=== PATIENT | male | born 1965 | race Caucasian/White ===

== ENCOUNTER 2017-01-06 12:35 | Emergency (ER) | payer MEDICARE ==
[2017-01-06 12:52] VITALS: BP 148/66; PULSE 85; RESP 20; TEMP 97.8
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
== END 2017-01-06 14:21 | disposition home or self-care (01) ==
LOC: EC 12:35
DX: S09.92XA Unspecified injury of nose, initial encounter (principal); W50.1XXA Accidental kick by another person, initial encounter; G82.20 Paraplegia, unspecified; Z99.3 Dependence on wheelchair; E11.9 Type 2 diabetes mellitus without complications; Z79.4 Long term (current) use of insulin; Z88.0 Allergy status to penicillin; Z88.2 Allergy status to sulfonamides; Z88.7 Allergy status to serum and vaccine; G47.30 Sleep apnea, unspecified; Z99.89 Dependence on other enabling machines and devices
CPT/HCPCS: 70160; 99284

== ENCOUNTER 2017-05-04 12:25 | Emergency (ER) | payer MEDICARE ==
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
--- NOTE | 2017-05-04 13:47 | US ---
EXAMINATION TYPE: US VENOUS DOPPLER DUPLEX LE LT DATE OF EXAM: 05/04/2017 1:41 PM COMPARISON: NONE CLINICAL HISTORY: left leg Pain patient paraplegic from waist down.. SIDE PERFORMED: Left TECHNIQUE: The lower extremity deep venous system is examined utilizing real time linear array sonog iglesia with graded compression, doppler sonography and color-flow sonography. VESSELS IMAGED: External Iliac Vein (EIV) Common Femoral Vein Deep Femoral Vein Greater Saphenous Vein * Femoral Vein Popliteal Vein Small Saphenous Vein * Proximal Calf Veins (* superficial vessels) Left lower extremity: Negative for DVT IMPRESSION: Grayscale, color doppler, spectral doppler imaging performed of the deep veins of the left lower extr emity. There is normal flow, compressibility, vascular waveforms bilaterally. NEGATIVE FOR DVT, LEFT LOWER EXTREMITY.
--- NOTE | 2017-05-04 14:16 | XR ---
EXAMINATION TYPE: XR Hip Complete LT 2V DATE OF EXAM: 05/04/2017 COMPARISON: NONE HISTORY: Pain for 3 days TECHNIQUE: AP and frog-leg lateral FINDINGS: Negative for fracture or malalignment, mild left hip osteoarthritis changes appreciated. No focal bony or soft tissue findings. IMPRESSION: No acute process.
[2017-05-04 14:50] VITALS: BP 123/61; PULSE 82; RESP 18; TEMP 98.6
== END 2017-05-04 14:48 | disposition home or self-care (01) ==
LOC: EC 12:25
DX: M25.552 Pain in left hip (principal); M79.605 Pain in left leg; Z79.899 Other long term (current) drug therapy; Z88.0 Allergy status to penicillin; Z88.2 Allergy status to sulfonamides; Z88.7 Allergy status to serum and vaccine; Z98.890 Other specified postprocedural states
CPT/HCPCS: 73502; 99284

== ENCOUNTER 2017-07-12 19:16 | Inpatient (IN) | payer MEDICARE ==
[2017-07-12] MEDS ORDERED: IPRATROPIUM-ALBUTEROL 3 ML NEB INHALATION STA (20:24)
[2017-07-12] MEDS ORDERED: ACETAMINOPHEN TAB 500 MG TAB PO STA (20:24)
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
[2017-07-12 21:06] LABS: Basophils # (A) 0.1 k/uL (0-0.2); Basophils % (A) 1 %; CH 30.2; CHCM 35.5; Eosinophils # (A) 0.3 k/uL (0-0.7); Eosinophils % (A) 5 %; HCT 46.2 % (39.0-53.0); HDW 2.96; HGB 16.3 gm/dL (13.0-17.5); Luc # (Auto) 0.26; Luc % (Auto) 4; Lymphocytes # (A) 2.8 k/uL (1.0-4.8); Lymphocytes % (A) 40 %; MCH 30.2 pg (25.0-35.0); MCHC 35.3 g/dL (31.0-37.0); MCV 85.5 fL (80.0-100.0); Monocytes # (A) 0.4 k/uL (0-1.0); Monocytes % (A) 5 %; Neutrophils # (A) 3.1 k/uL (1.3-7.7); Neutrophils % (A) 45 %; RDW 13.1 % (11.5-15.5); WBC 6.9 k/uL (3.8-10.6); WBC (Perox) 6.48
[2017-07-12 21:14] LABS: ALT 32 U/L (21-72); AST 14 U/L (17-59); Alkaline Phosphatase 148 U/L (38-126); Anion Gap 10 mmol/L; Blood Urea Nitrogen 15 mg/dL (9-20); Calcium 9.1 mg/dL (8.4-10.2); Carbon Dioxide 24 mmol/L (22-30); Chloride 98 mmol/L (98-107); Non-African American GFR(MDRD) >60 (>60 ml/min/1.73 sqM); Potassium 4.4 mmol/L (3.5-5.1); Sodium 132 mmol/L (137-145); Total Bilirubin 0.5 mg/dL (0.2-1.3); Total Protein 6.6 g/dL (6.3-8.2)
--- NOTE | 2017-07-12 21:14 | XR ---
EXAMINATION TYPE: XR chest 2V DATE OF EXAM: 07/12/2017 COMPARISON: 07/04/2016 HISTORY: Cough TECHNIQUE: Frontal and lateral views of the chest are obtained. FINDINGS: Heart and mediastinum are normal. There is a small infiltrate in the right lower lobe. The other lung sparrow are clear. Bony thorax is intact. Left shoulder surgery is noted. IMPRESSION: There is a small right lower lobe pneumonia that is new compared to old exam.
[2017-07-12 21:16] LABS: Glucose 565 mg/dL (74-99)
[2017-07-12] MEDS ORDERED: SODIUM CHLORIDE 0.9% 1,000 ML IV ONE ×2 (21:47→22:10)
[2017-07-12] MEDS ORDERED: AZITHROMYCIN 500 MG in SODIUM CHLORIDE 0.9% 250 ML IVPB STA (21:50)
[2017-07-12] MEDS ORDERED: INSULIN REGULAR 100 UNIT/ML VIAL SQ ONE (21:52)
[2017-07-12 23:03] LABS: Appearance,Urine Clear (Clear); Bilirubin,Urine Negative (Negative); Glucose,Urine (UA) 4+ (Negative); Leukocyte Esterase,Urine Negative (Negative); Nitrite,Urine Negative (Negative); PH, Urine 5.5 (5.0-8.0); Protein,Urine Negative (Negative); Specific Gravity,Urine 1.032 (1.001-1.035); UA Billing (MACRO vs. MICRO) CHEM; Urobilinogen,Urine <2.0 mg/dL (<2.0)
[2017-07-12 23:11] LABS: Ketones,Urine 2+ (Negative)
[2017-07-13 01:35] LABS: Glucose,Whole Blood 335 mg/dL (75-99)
[2017-07-13] MEDS ORDERED: IPRATROPIUM-ALBUTEROL 3 ML NEB INHALATION PRN (02:28)
[2017-07-13] MEDS ORDERED: INSULIN REGULAR 100 UNIT/ML VIAL IV STA (02:38)
[2017-07-13] MEDS ORDERED: INSULIN REGULAR 100 UNIT/ML VIAL SQ STA ×2 (03:12→05:41)
[2017-07-13] MEDS ORDERED: NALOXONE 0.4 MG/ML 1 ML VIAL IV PRN (03:46)
[2017-07-13] MEDS ORDERED: ACETAMINOPHEN TAB 325 MG TAB PO PRN (03:46)
[2017-07-13] MEDS ORDERED: BENZOCAINE/MENTHOL LOZENG 1 EACH LOZENGE MUCOUS MEM PRN (03:46)
[2017-07-13] MEDS ORDERED: CALCIUM CARBONATE 500 MG CHEWABLE PO PRN (03:46)
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
[2017-07-13] MEDS ORDERED: SODIUM CHLORIDE 0.9% 1,000 ML IV SCH (04:00)
[2017-07-13 04:01] LABS: Glucose,Whole Blood 273 mg/dL (75-99)
[2017-07-13 05:45] LABS: Glucose,Whole Blood 348 mg/dL (75-99)
[2017-07-13 06:56] LABS: Glucose,Whole Blood 293 mg/dL (75-99)
[2017-07-13] MEDS: INSULIN LISPRO (humaLOG) 300 UNIT/3 ML VIAL SQ SCH ×4 (07:06→21:47)
[2017-07-13] MEDS: INSULIN NPH/REG INSULIN 70/30 300 UNIT/3 ML VIAL SQ SCH (07:23)
[2017-07-13] MEDS ORDERED: ESCITALOPRAM 20 MG TAB PO SCH (09:00)
[2017-07-13] MEDS: HEPARIN SODIUM,PORCINE 5,000 UNIT/ML 1 ML VIAL SQ SCH ×2 (09:38→17:36)
--- NOTE | 2017-07-13 11:20 | P.PN ---
Subjective Principal diagnosis: Pneumonia 51 years old male admitted with shortness of breath, cough, fever and reason. He was diagnosed with community acquired pneumonia, started on IV antibiotics. At present time dyspnea improved, cough is productive with whitish clear phlegm. Upon admission patient had some nausea and vomiting which resolved by morning. She was able to tolerate by mouth intake, no nausea or abdominal pain , denies diarrhea. No other issues overnight. Objective - Vital Signs Vital signs: Vital Signs Temp 97.9 F 07/13/17 09:07 Pulse 85 07/13/17 09:54 Resp 20 07/13/17 09:54 BP 144/72 07/13/17 09:07 Pulse Ox 95 07/13/17 09:07 Intake & Output 07/12/17 07/13/17 07/13/17 18:59 06:59 18:59 Weight 90.718 kg Other: # Voids 1 - Exam Physical exam: No acute distress, awake alert oriented 3. HEENT: Normocephalic, atraumatic, sclerae anicteric. Oral mucosa moist and clear. Neck: Supple, trachea midline. Cardiovascular exam reveals normal S1-S2, regular rate and rhythm.. Chest clear to auscultation bilaterally, no wheezes or rhonchi, no crackles. Abdomen nondistended, soft, positive bowel sounds. Extremities-no edema or cyanosis. Skin-warm, dry and clear, no lesions or ulcers. - Labs CBC & Chem 7: 07/12/17 20:45 07/12/17 20:45 Labs: Abnormal Lab Results - Last 24 Hours (Table) 07/12/17 07/12/17 07/12/17 Range/Units 20:45 20:45 22:45 Sodium 132 L (137-145) mmol/L Glucose 565 H* (74-99) mg/dL POC Glucose (mg/dL) (75-99) mg/dL Hemoglobin A1c 12.0 H (4.2-6.1) % AST 14 L (17-59) U/L Alkaline Phosphatase 148 H (38-126) U/L Urine Glucose (UA) 4+ H (Negative) Urine Ketones 2+ H (Negative) 07/13/17 07/13/17 07/13/17 Range/Units 01:32 03:59 05:33 Sodium (137-145) mmol/L Glucose (74-99) mg/dL POC Glucose (mg/dL) 335 H 273 H 348 H (75-99) mg/dL Hemoglobin A1c (4.2-6.1) % AST (17-59) U/L Alkaline Phosphatase (38-126) U/L Urine Glucose (UA) (Negative) Urine Ketones (Negative) 07/13/17 Range/Units 06:54 Sodium (137-145) mmol/L Glucose (74-99) mg/dL POC Glucose (mg/dL) 293 H (75-99) mg/dL Hemoglobin A1c (4.2-6.1) % AST (17-59) U/L Alkaline Phosphatase (38-126) U/L Urine Glucose (UA) (Negative) Urine Ketones (Negative) Assessment and Plan (1) Asthma attack Narrative/Plan: Continue with bronchodilators. Dyspnea improved significantly, no need for IV steroids. Status: Acute (2) Community acquired pneumonia Narrative/Plan: Continue IV ceftriaxone and Zithromax, and mucolytics and incentive spirometry. Blood cultures and sputum cultures pending. Status: Acute (3) Type 2 diabetes mellitus with hyperglycemia Narrative/Plan: Uncontrolled diabetes with hemoglobin A1c 12.0. Patient is noncompliant. Will continue with insulin and insulin sliding scale. Accu-Chek before meals at bedtime. Status: Acute Plan: Patient is homeless. quarry extraction worker has been consulted, possibly will need placement to facility. We will consult PT OT for evaluation for discharge planning.
[2017-07-13 12:16] LABS: Glucose,Whole Blood 262 mg/dL (75-99)
[2017-07-13] MEDS ORDERED: INSULIN NPH/REG INSULIN 70/30 300 UNIT/3 ML VIAL SQ SCH (17:30)
[2017-07-13 17:36] LABS: Glucose,Whole Blood 271 mg/dL (75-99)
[2017-07-13 20:53] LABS: Glucose,Whole Blood 290 mg/dL (75-99)
[2017-07-13] MEDS ORDERED: AZITHROMYCIN 500 MG in SODIUM CHLORIDE 0.9% 250 ML IVPB SCH (23:00)
[2017-07-14] MEDS: HEPARIN SODIUM,PORCINE 5,000 UNIT/ML 1 ML VIAL SQ SCH ×2 (00:01→08:42)
[2017-07-14 07:13] LABS: Glucose,Whole Blood 237 mg/dL (75-99)
[2017-07-14 07:25] VITALS: BP 105/63; PULSE 67; RESP 16; TEMP 96.2
[2017-07-14] MEDS: INSULIN NPH/REG INSULIN 70/30 300 UNIT/3 ML VIAL SQ SCH (08:41)
[2017-07-14] MEDS: INSULIN LISPRO (humaLOG) 300 UNIT/3 ML VIAL SQ SCH ×2 (08:41→13:17)
[2017-07-14 12:14] LABS: Glucose,Whole Blood 329 mg/dL (75-99)
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
[2017-07-14] MEDS ORDERED: AZITHROMYCIN 500 MG TAB PO SCH (21:00)
== END 2017-07-14 13:29 | disposition home or self-care (01) | DRG 194 ==
LOC: SUPCPDRO 19:16 → EC 19:16 → 3OBS 21:53 → OBSVTOIN 21:53 → 4MS4W 07-13 01:49
PROVIDERS: ADMIT Hospitalist; ATTEND Hospitalist
DX: J18.9 Pneumonia, unspecified organism (principal); G82.20 Paraplegia, unspecified; Z86.74 Personal history of sudden cardiac arrest; J45.909 Unspecified asthma, uncomplicated; T43.226A Underdosing of selective serotonin reuptake inhibitors, initial encounter; T38.3X6A Underdosing of insulin and oral hypoglycemic [antidiabetic] drugs, initial encounter; E08.65 Diabetes mellitus due to underlying condition with hyperglycemia; R11.2 Nausea with vomiting, unspecified; T14.8 Other injury of unspecified body region; R42 Dizziness and giddiness; R35.0 Frequency of micturition; R53.81 Other malaise; G47.30 Sleep apnea, unspecified; Z59.0 Homelessness; Z80.52 Family history of malignant neoplasm of bladder; Z80.0 Family history of malignant neoplasm of digestive organs; Z88.0 Allergy status to penicillin; Z88.2 Allergy status to sulfonamides; Z88.7 Allergy status to serum and vaccine; Z87.81 Personal history of (healed) traumatic fracture; Z87.820 Personal history of traumatic brain injury; Z87.11 Personal history of peptic ulcer disease; Z86.14 Personal history of Methicillin resistant Staphylococcus aureus infection; Z86.19 Personal history of other infectious and parasitic diseases; Z91.030 Bee allergy status; Z87.01 Personal history of pneumonia (recurrent); Z86.69 Personal history of other diseases of the nervous system and sense organs; Z87.19 Personal history of other diseases of the digestive system; Z79.4 Long term (current) use of insulin; Z79.899 Other long term (current) drug therapy; Z91.14 Patient's other noncompliance with medication regimen; Z91.19 Patient's noncompliance with other medical treatment and regimen; V89.2XXS Person injured in unspecified motor-vehicle accident, traffic, sequela
CPT/HCPCS: 36415; 71020; 80053; 81003; 83036; 83605; 85025; 87040; 94640; 96361; 96365; 96368; 99285

== ENCOUNTER → 2017-07-12 | Outpatient (CLI) | payer MEDICARE ==
--- NOTE | 2017-07-12 21:43 | MR ---
EXAMINATION TYPE: MR lumbar spine wo/w con DATE OF EXAM: 07/12/2017 COMPARISON: NONE HISTORY: LBP, no use of legs, 2 episodes of sudden onset left leg pain 2 mos ago CONTRAST: 20 mL intravenous MultiHance. TECHNIQUE: Multiplanar, multisequence images of the lumbar spine were acquired. FINDINGS: L5-S1: Mild disc bulge has anterior thecal sac compression. No AP spinal canal stenosis is present. M arked left facet hypertrophy is present without significant posterior lateral thecal sac compression. Mild right facet hypertrophy is present. L4-L5: Mild broad-based disc bulge is present. Subligamentous disc extension is present. Mild anterio r thecal sac flattening is present. No AP spinal canal stenosis is present. Neural foramen are patent . L3-L4: Mild disc bulge is present with anterior thecal sac flattening. Subligamentous disc extension extends posterior to the L4 endplate. No AP spinal canal stenosis present. Neural foramen are patent. L2-L3: No significant disc bulge or disc herniation. No spinal canal stenosis. No foraminal stenosi s. Mild disc space narrowing may be present.. L1-L2: No significant disc bulge or disc herniation. No spinal canal stenosis. No foraminal stenosi s. Disc space narrowing is present.. T12-L1: No significant disc bulge or disc herniation. No spinal canal stenosis. No foraminal stenos is. . No abnormal enhancement. IMPRESSION: 1. Disc bulging L3-4 through L5-S1. 2. Subligamentous disc extension L3-4, L4-5 and L5-S1. 3. Marked left facet hypertrophy L5-S1 without significant thecal sac.
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
== END | disposition home or self-care (01) ==
LOC: RADMRIMAIN 17:04
PROVIDERS: ATTEND Physician Assistant
DX: M48.02 Spinal stenosis, cervical region (principal); M51.27 Other intervertebral disc displacement, lumbosacral region; M50.223 Other cervical disc displacement at C6-C7 level
CPT/HCPCS: 72141; 72158; A9577

== ENCOUNTER 2018-03-22 22:11 | Emergency (ER) | payer MEDICARE, OTHER ==
[2018-03-22 22:17] VITALS: RESP 18
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
[2018-03-22] MEDS ORDERED: RX INFO: IV CONTRAST WAS GIVEN 1 EACH MISC MISCELLANE PRN (23:21)
[2018-03-22 23:49] LABS: Appearance,Urine Clear (Clear); Bilirubin,Urine Negative (Negative); Blood,Urine Negative (Negative); Color,Urine Yellow; Glucose,Urine (UA) 4+ (Negative); Ketones,Urine Negative (Negative); Leukocyte Esterase,Urine Negative (Negative); Nitrite,Urine Negative (Negative); Protein,Urine Negative (Negative); Specific Gravity,Urine 1.035 (1.001-1.035); Urobilinogen,Urine <2.0 mg/dL (<2.0)
[2018-03-23 00:08] LABS: Basophils % (A) 0 %; Eosinophils # (A) 0.3 k/uL (0-0.7); Eosinophils % (A) 3 %; HCT 47.7 % (39.0-53.0); Lymphocytes # (A) 2.3 k/uL (1.0-4.8); Lymphocytes % (A) 20 %; MCH 28.1 pg (25.0-35.0); MCHC 33.6 g/dL (31.0-37.0); MCV 83.6 fL (80.0-100.0); Mean Platelet Volume 7.3; Monocytes # (A) 0.7 k/uL (0-1.0); Monocytes % (A) 6 %; Neutrophils # (A) 7.8 k/uL (1.3-7.7); Neutrophils % (A) 70 %; Platelet Count 213 k/uL (150-450); RDW 13.3 % (11.5-15.5); WBC 11.1 k/uL (3.8-10.6)
[2018-03-23 00:11] LABS: Anion Gap 13 mmol/L; Blood Urea Nitrogen 17 mg/dL (9-20); Calcium 9.3 mg/dL (8.4-10.2); Carbon Dioxide 25 mmol/L (22-30); Chloride 102 mmol/L (98-107); Glucose 255 mg/dL (74-99); Potassium 4.9 mmol/L (3.5-5.1); Sodium 140 mmol/L (137-145)
[2018-03-23 00:14] LABS: INR 1.1 (<1.2); Prothrombin Time 10.3 sec (9.0-12.0)
--- NOTE | 2018-03-23 01:22 | CT ---
EXAMINATION TYPE: CT lumbar spine w con DATE OF EXAM: 03/23/2018 COMPARISON: MR scan 07/12/2017 HISTORY: Back pain CT DLP: 936.90 mGycm Automated exposure control for dose reduction was used. CONTRAST: CT scan of the lumbar is performed with IV Contrast, patient injected with 100 mL of Isovue 300. Enhanced CT of the lumbar spine was performed. Bone and soft tissue window settings are submitted as well as coronal and sagittal reconstructions. The lumbar vertebra have normal alignment. There are are posterior disc herniations at L3-4 L4-5 and L5-S1 with calcification of the posterior longitudinal ligament. There is no compression fracture. Th ere is multilevel hypertrophic facet arthropathy. There is developmentally small spinal canal and the re is some spinal stenosis at levels from L3-4 to L5-S1. There is no paraspinal mass. I see no pathol ogic enhancement. There is no compression fracture. Sacroiliac joints appear intact. IMPRESSION: There are mild posterior disc herniations with facet arthropathy from levels L3-S1 with multilevel beron[place] ny spinal stenosis. This appears worse than the last MR scan of 07/12/2017. No fracture. No evidence o f an epidural mass.
[2018-03-23 02:53] VITALS: BP 128/60; PULSE 97; TEMP 98
== END 2018-03-23 02:53 | disposition home or self-care (01) ==
LOC: EC 22:11
DX: R33.9 Retention of urine, unspecified (principal); S31.030A Puncture wound without foreign body of lower back and pelvis without penetration into retroperitoneum, initial encounter; E11.9 Type 2 diabetes mellitus without complications; Z86.14 Personal history of Methicillin resistant Staphylococcus aureus infection; Z88.0 Allergy status to penicillin; Z88.2 Allergy status to sulfonamides; Z88.7 Allergy status to serum and vaccine; Z91.048 Other nonmedicinal substance allergy status; Z79.4 Long term (current) use of insulin; Z79.899 Other long term (current) drug therapy; Z98.890 Other specified postprocedural states; X58.XXXA Exposure to other specified factors, initial encounter
CPT/HCPCS: 36415; 51702; 51798; 72132; 80048; 81003; 85025; 85610; 93005; 99284

== ENCOUNTER → 2018-06-20 | Outpatient (CLI) | payer MEDICARE ==
--- NOTE | 2018-06-20 12:25 | CT ---
EXAMINATION TYPE: CT brain wo con DATE OF EXAM: 06/20/2018 COMPARISON: NONE HISTORY: Fatigue, excessive sleepiness CT DLP: 978.20 mGycm. Automated Exposure Control for Dose Reduction was Utilized. TECHNIQUE: CT scan of the head is performed without contrast. FINDINGS: There is no acute intracranial hemorrhage, mass effect, or midline shift identified. No suspicious extra-axial fluid collection. The ventricles and sulci are within normal limits in size. The globes are intact and the visualized sinuses are clear. Calvarium appears intact. IMPRESSION: No acute intracranial process. No intracranial hemorrhage, mass effect, or midline shift is seen. If there is further concern MRI could be performed.
== END | disposition home or self-care (01) ==
LOC: RADCTMAIN 11:39
PROVIDERS: ATTEND Nurse Practitioner Family
DX: G47.10 Hypersomnia, unspecified (principal); R53.83 Other fatigue
CPT/HCPCS: 70450

== ENCOUNTER 2019-04-12 15:45 | Inpatient (IN) | payer MEDICARE, OTHER ==
[2019-04-12] MEDS ORDERED: IPRATROPIUM-ALBUTEROL 3 ML NEB INHALATION STA (15:52)
[2019-04-12] MEDS ORDERED: SODIUM CHLORIDE 0.9% 500 ML 500 ML IV STA (15:52)
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
[2019-04-12 16:47] LABS: Basophils % (A) 1 %; Eosinophils # (A) 0.3 k/uL (0-0.7); Eosinophils % (A) 4 %; HCT 48.2 % (39.0-53.0); HGB 15.8 gm/dL (13.0-17.5); Lymphocytes # (A) 1.7 k/uL (1.0-4.8); Lymphocytes % (A) 21 %; MCH 28.9 pg (25.0-35.0); MCHC 32.8 g/dL (31.0-37.0); MCV 88.1 fL (80.0-100.0); Monocytes # (A) 0.5 k/uL (0-1.0); Monocytes % (A) 6 %; Neutrophils # (A) 5.5 k/uL (1.3-7.7); Neutrophils % (A) 67 %; Platelet Count 214 k/uL (150-450); RBC 5.47 m/uL (4.30-5.90); RDW 13.4 % (11.5-15.5); WBC 8.1 k/uL (3.8-10.6)
[2019-04-12 16:58] LABS: ALT 18 U/L (21-72); AST 13 U/L (17-59); Albumin 3.7 g/dL (3.5-5.0); Alkaline Phosphatase 170 U/L (38-126); Anion Gap 11 mmol/L; Blood Urea Nitrogen 13 mg/dL (9-20); Calcium 8.8 mg/dL (8.4-10.2); Carbon Dioxide 20 mmol/L (22-30); Chloride 100 mmol/L (98-107); Potassium 4.4 mmol/L (3.5-5.1); Sodium 131 mmol/L (137-145); Total Bilirubin 0.5 mg/dL (0.2-1.3); Total Protein 6.3 g/dL (6.3-8.2)
[2019-04-12 17:01] LABS: INR 0.8 (<1.2); Prothrombin Time 9.3 sec (9.0-12.0)
[2019-04-12 17:03] LABS: Glucose 572 mg/dL (74-99)
[2019-04-12 17:06] LABS: Partial Thromboplastin Time 21.1 sec (22.0-30.0)
[2019-04-12 17:17] LABS: Appearance,Urine Clear (Clear); Bilirubin,Urine Negative (Negative); Blood,Urine Negative (Negative); Color,Urine Light Yellow; Glucose,Urine (UA) 4+ (Negative); Leukocyte Esterase,Urine Negative (Negative); Nitrite,Urine Negative (Negative); Protein,Urine Negative (Negative); Specific Gravity,Urine 1.039 (1.001-1.035); Urobilinogen,Urine <2.0 mg/dL (<2.0)
[2019-04-12 17:24] LABS: Ketones,Urine 2+ (Negative)
[2019-04-12] MEDS ORDERED: INSULIN REGULAR 100 UNIT/ML VIAL IV ONE (17:28)
[2019-04-12] MEDS ORDERED: SODIUM CHLORIDE 0.9% 500 ML 500 ML IV ONE (17:28)
--- NOTE | 2019-04-12 17:29 | XR ---
EXAMINATION TYPE: XR chest 2V DATE OF EXAM: 04/12/2019 COMPARISON: 07/12/2017 HISTORY: Elevated blood sugar. Difficulty breathing TECHNIQUE: Frontal and lateral views of the chest are obtained. FINDINGS: Heart and mediastinum are normal. Lungs are clear. Diaphragm is normal. Bony thorax is int act. IMPRESSION: Normal chest. No change.
[2019-04-12] MEDS: SODIUM CHLORIDE 0.9% 1,000 ML IV SCH (18:01)
[2019-04-12] MEDS ORDERED: ONDANSETRON 4 MG/2 ML VIAL IVP PRN (18:16)
[2019-04-12] MEDS ORDERED: NALOXONE 0.4 MG/ML 1 ML VIAL IV PRN (18:16)
[2019-04-12 19:09] LABS: Glucose,Whole Blood 343 mg/dL (75-99)
[2019-04-12 19:48] LABS: Anion Gap 10 mmol/L; Blood Urea Nitrogen 11 mg/dL (9-20); Calcium 8.6 mg/dL (8.4-10.2); Carbon Dioxide 22 mmol/L (22-30); Chloride 105 mmol/L (98-107); Glucose 335 mg/dL (74-99); Potassium 4.1 mmol/L (3.5-5.1); Sodium 137 mmol/L (137-145)
[2019-04-12 20:44] LABS: Glucose,Whole Blood 272 mg/dL (75-99)
[2019-04-12] MEDS ORDERED: TEMAZEPAM 15 MG CAP PO PRN (20:54)
[2019-04-12] MEDS ORDERED: ALPRAZolam 0.25 MG TAB PO PRN (20:54)
[2019-04-12] MEDS ORDERED: Potassium Replacement Protocol 1 EACH MISC MISCELLANE PRN (21:13)
[2019-04-12] MEDS ORDERED: Magnesium Replacement Protocol 1 EACH MISC MISCELLANE PRN (21:13)
[2019-04-12] MEDS: INSULIN REGULAR 100 UNIT in SODIUM CHLORIDE 0.9% 100 ML IV SCH (22:33)
[2019-04-12] MEDS ORDERED: FLUTICASONE 50MCG/SPRAY NASAL 16GM EA NOSTRIL PRN (22:40)
[2019-04-12] MEDS: HEPARIN SODIUM,PORCINE 5,000 UNIT/ML 1 ML VIAL SQ SCH (22:44)
[2019-04-12 22:47] LABS: Glucose,Whole Blood 352 mg/dL (75-99)
[2019-04-12 23:31] LABS: Glucose,Whole Blood 362 mg/dL (75-99)
[2019-04-12 23:34] LABS: VBG PH 7.37 (7.31-7.41)
[2019-04-12 23:42] LABS: Anion Gap 9 mmol/L; Blood Urea Nitrogen 13 mg/dL (9-20); Carbon Dioxide 22 mmol/L (22-30); Chloride 104 mmol/L (98-107); Glucose 387 mg/dL (74-99); Potassium 4.2 mmol/L (3.5-5.1); Sodium 135 mmol/L (137-145)
[2019-04-13 00:32] LABS: Glucose,Whole Blood 382 mg/dL (75-99)
[2019-04-13 01:38] LABS: Glucose,Whole Blood 405 mg/dL (75-99)
[2019-04-13] MEDS: ACETAMINOPHEN TAB 325 MG TAB PO PRN ×2 (01:45→21:22)
[2019-04-13 02:42] LABS: Glucose,Whole Blood 408 mg/dL (75-99)
[2019-04-13 03:34] LABS: Glucose,Whole Blood 333 mg/dL (75-99)
[2019-04-13 04:14] LABS: Basophils % (A) 1 %; Eosinophils # (A) 0.4 k/uL (0-0.7); Eosinophils % (A) 4 %; HCT 43.9 % (39.0-53.0); HGB 14.4 gm/dL (13.0-17.5); Lymphocytes # (A) 1.9 k/uL (1.0-4.8); Lymphocytes % (A) 23 %; MCHC 32.8 g/dL (31.0-37.0); MCV 88.5 fL (80.0-100.0); Mean Platelet Volume 7.1; Monocytes # (A) 0.5 k/uL (0-1.0); Monocytes % (A) 6 %; Neutrophils # (A) 5.3 k/uL (1.3-7.7); Neutrophils % (A) 64 %; Platelet Count 186 k/uL (150-450); RBC 4.96 m/uL (4.30-5.90); RDW 13.7 % (11.5-15.5); WBC 8.3 k/uL (3.8-10.6)
[2019-04-13 04:15] LABS: ALT 12 U/L (21-72); AST 11 U/L (17-59); Albumin 3.2 g/dL (3.5-5.0); Alkaline Phosphatase 106 U/L (38-126); Anion Gap 9 mmol/L; Blood Urea Nitrogen 14 mg/dL (9-20); Calcium 8.4 mg/dL (8.4-10.2); Carbon Dioxide 21 mmol/L (22-30); Chloride 104 mmol/L (98-107); Glucose 336 mg/dL (74-99); Magnesium 1.9 mg/dL (1.6-2.3); Phosphorus 3.5 mg/dL (2.5-4.5); Sodium 134 mmol/L (137-145); Total Bilirubin 0.5 mg/dL (0.2-1.3); Total Protein 5.5 g/dL (6.3-8.2)
[2019-04-13 04:33] LABS: Glucose,Whole Blood 284 mg/dL (75-99)
[2019-04-13] MEDS: D5-0.45% NACL WITH KCL 20MEQ/L 1,000 ML IV SCH ×3 (04:34→11:41)
[2019-04-13 05:34] LABS: Glucose,Whole Blood 326 mg/dL (75-99)
[2019-04-13] MEDS: INSULIN REGULAR 100 UNIT in SODIUM CHLORIDE 0.9% 100 ML IV SCH ×2 (06:18→09:31)
[2019-04-13] MEDS: SODIUM CHLORIDE 0.9% 1,000 ML IV SCH ×2 (06:23→21:34)
[2019-04-13] MEDS: PANTOPRAZOLE 40 MG TABLET PO SCH (06:25)
[2019-04-13 06:27] LABS: Glucose,Whole Blood 341 mg/dL (75-99)
[2019-04-13] MEDS ORDERED: INSULIN ASPART (NovoLOG) 100 UNIT/ML VIAL SQ SCH (07:30)
[2019-04-13 07:31] LABS: Glucose,Whole Blood 268 mg/dL (75-99)
[2019-04-13] MEDS: HEPARIN SODIUM,PORCINE 5,000 UNIT/ML 1 ML VIAL SQ SCH ×2 (08:11→21:34)
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
[2019-04-13 09:29] LABS: Glucose,Whole Blood 166 mg/dL (75-99)
[2019-04-13 10:28] LABS: Glucose,Whole Blood 142 mg/dL (75-99)
[2019-04-13 10:34] VITALS: BMI 26.4
[2019-04-13 11:38] LABS: Glucose,Whole Blood 93 mg/dL (75-99)
[2019-04-13] MEDS: INSULIN ASPART (NovoLOG) 100 UNIT/ML VIAL SQ SCH ×3 (11:42→21:23)
[2019-04-13] MEDS: IPRATROPIUM-ALBUTEROL 3 ML NEB INHALATION SCH ×3 (13:30→21:26)
[2019-04-13 13:38] LABS: Hemoglobin A1C 14.1 % (4.0-6.0)
--- NOTE | 2019-04-13 14:35 | CT ---
CT CHEST FOR PULMONARY EMBOLISM. EXAMINATION TYPE: CT angio chest DATE OF EXAM: 04/13/2019 INDICATION: Elevated D dimer CT DLP: 442.7 mGycm, Automated exposure control for dose reduction was used. CONTRAST: Patient injected with 85 mL of Isovue 370. COMPARISON: 01/06/2016 TECHNIQUE: CT of the chest is performed on a spiral scan at 2 mm thick sections. Study is performed with intravenous contrast timed for evaluation for pulmonary embolism. This will limit additional po rtions of the evaluation. 3-D MIP images reconstructed by the technologist are reviewed on the compu ter in the coronal and sagittal planes. FINDINGS: No persistent filling defects are evident to suggest an acute pulmonary embolism. No mediastinal or hilar adenopathy enlarged by CT criteria is evident. The ascending aorta diameter at the level of the main pulmonary artery is 3.9 cm. The main pulmonary artery diameter at the bifur cation is 2.5 cm. Lung windows are clear. Limited CT section through the upper abdomen. Gas within a cholesterol stone within the gallbladder i s identified. IMPRESSIONS: 1. No acute pulmonary embolism
[2019-04-13 16:49] LABS: Glucose,Whole Blood 309 mg/dL (75-99)
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
[2019-04-13] MEDS ORDERED: INSULIN DETEMIR (LEVEMIR) 100 UNIT/ML SYR SQ SCH (21:00)
[2019-04-13 21:17] LABS: Glucose,Whole Blood 275 mg/dL (75-99)
[2019-04-13] MEDS: HYDROcodone/APAP 5-325MG 1 EACH TAB PO PRN (22:55)
[2019-04-14 01:26] LABS: Glucose,Whole Blood 212 mg/dL (75-99)
[2019-04-14 05:54] LABS: Glucose,Whole Blood 261 mg/dL (75-99)
[2019-04-14 06:49] LABS: Basophils # (A) 0.1 k/uL (0-0.2); Basophils % (A) 1 %; Eosinophils # (A) 0.2 k/uL (0-0.7); Eosinophils % (A) 2 %; HCT 48.2 % (39.0-53.0); HGB 15.8 gm/dL (13.0-17.5); Lymphocytes # (A) 0.7 k/uL (1.0-4.8); Lymphocytes % (A) 9 %; MCH 28.3 pg (25.0-35.0); MCHC 32.7 g/dL (31.0-37.0); MCV 86.5 fL (80.0-100.0); Mean Platelet Volume 6.8; Monocytes # (A) 0.5 k/uL (0-1.0); Monocytes % (A) 6 %; Neutrophils # (A) 6.7 k/uL (1.3-7.7); Neutrophils % (A) 80 %; Platelet Count 196 k/uL (150-450); RBC 5.58 m/uL (4.30-5.90); RDW 13.5 % (11.5-15.5); WBC 8.3 k/uL (3.8-10.6)
[2019-04-14 06:59] LABS: Anion Gap 10 mmol/L; Blood Urea Nitrogen 12 mg/dL (9-20); Calcium 8.7 mg/dL (8.4-10.2); Carbon Dioxide 22 mmol/L (22-30); Chloride 104 mmol/L (98-107); Glucose 279 mg/dL (74-99); Potassium 4.2 mmol/L (3.5-5.1); Sodium 136 mmol/L (137-145)
[2019-04-14] MEDS: PANTOPRAZOLE 40 MG TABLET PO SCH (07:09)
[2019-04-14] MEDS ORDERED: INSULIN ASPART (NovoLOG) 100 UNIT/ML VIAL SQ SCH ×3 (07:30→21:00)
[2019-04-14] MEDS: IPRATROPIUM-ALBUTEROL 3 ML NEB INHALATION SCH ×4 (07:51→19:33)
[2019-04-14] MEDS: SODIUM CHLORIDE 0.9% 1,000 ML IV SCH ×2 (08:43→21:23)
[2019-04-14] MEDS: HEPARIN SODIUM,PORCINE 5,000 UNIT/ML 1 ML VIAL SQ SCH ×2 (08:48→21:20)
[2019-04-14] MEDS ORDERED: INSULIN DETEMIR (LEVEMIR) 100 UNIT/ML SYR SQ SCH ×2 (09:00→21:00)
[2019-04-14] MEDS: HYDROcodone/APAP 5-325MG 1 EACH TAB PO PRN ×2 (09:04→18:20)
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
[2019-04-14 12:10] LABS: Glucose,Whole Blood 252 mg/dL (75-99)
[2019-04-14 16:43] LABS: Glucose,Whole Blood 236 mg/dL (75-99)
[2019-04-14] MEDS: INSULIN ASPART (NovoLOG) 100 UNIT/ML VIAL SQ SCH (18:21)
--- NOTE | 2019-04-14 19:23 | XR ---
PROCEDURE: XR cervical spine comp - 5V DATE AND TIME: 04/14/2019 7:07 PM CLINICAL INDICATION: PHH; HEADACHE TECHNIQUE: Department protocol, 5 views COMPARISON: None FINDINGS: There is no fracture or malalignment. The orthopedic fixation hardware is intact and unremarkable. No periprosthesis lucency. The airway and soft tissues are unremarkable. IMPRESSION: NO ACUTE PROCESS.
[2019-04-14 20:29] LABS: Glucose,Whole Blood 237 mg/dL (75-99)
[2019-04-14] MEDS ORDERED: POLYETHYLENE GLYCOL 3350 17 GM POWD.PACK PO PRN (20:57)
[2019-04-14] MEDS: DOCUSATE 100 MG CAP PO PRN (21:19)
[2019-04-15] MEDS: HYDROcodone/APAP 5-325MG 1 EACH TAB PO PRN (03:45)
[2019-04-15 06:27] LABS: Basophils % (A) 0 %; Eosinophils # (A) 0.2 k/uL (0-0.7); Eosinophils % (A) 3 %; HCT 43.8 % (39.0-53.0); HGB 14.7 gm/dL (13.0-17.5); Lymphocytes # (A) 1.6 k/uL (1.0-4.8); Lymphocytes % (A) 25 %; MCH 28.7 pg (25.0-35.0); MCHC 33.6 g/dL (31.0-37.0); MCV 85.5 fL (80.0-100.0); Mean Platelet Volume 6.7; Monocytes # (A) 0.5 k/uL (0-1.0); Monocytes % (A) 7 %; Neutrophils # (A) 4.1 k/uL (1.3-7.7); Neutrophils % (A) 63 %; Platelet Count 208 k/uL (150-450); RBC 5.12 m/uL (4.30-5.90); RDW 13.6 % (11.5-15.5); WBC 6.6 k/uL (3.8-10.6)
[2019-04-15 06:30] LABS: Anion Gap 9 mmol/L; Blood Urea Nitrogen 13 mg/dL (9-20); Calcium 8.4 mg/dL (8.4-10.2); Carbon Dioxide 24 mmol/L (22-30); Chloride 100 mmol/L (98-107); Glucose 273 mg/dL (74-99); Potassium 3.7 mmol/L (3.5-5.1); Sodium 133 mmol/L (137-145)
[2019-04-15 06:35] LABS: Glucose,Whole Blood 267 mg/dL (75-99)
[2019-04-15] MEDS: PANTOPRAZOLE 40 MG TABLET PO SCH (06:59)
[2019-04-15] MEDS: INSULN ASP PRT/INSULIN ASPART 100 UNIT/ML 10 ML VIAL SQ SCH ×2 (06:59→17:29)
[2019-04-15] MEDS: DOCUSATE 100 MG CAP PO PRN ×2 (08:37→20:51)
[2019-04-15] MEDS: HYDROmorphone 0.5 MG/0.5 ML SYRINGE IVP PRN ×3 (08:37→20:52)
[2019-04-15] MEDS: HEPARIN SODIUM,PORCINE 5,000 UNIT/ML 1 ML VIAL SQ SCH ×2 (08:37→20:51)
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
[2019-04-15] MEDS: IPRATROPIUM-ALBUTEROL 3 ML NEB INHALATION SCH ×4 (10:09→19:55)
[2019-04-15 11:56] LABS: Glucose,Whole Blood 174 mg/dL (75-99)
[2019-04-15] MEDS: SODIUM CHLORIDE 0.9% 1,000 ML IV SCH (14:41)
[2019-04-15 17:21] LABS: Glucose,Whole Blood 262 mg/dL (75-99)
[2019-04-15 20:43] LABS: Glucose,Whole Blood 344 mg/dL (75-99)
[2019-04-15] MEDS: INSULIN ASPART (NovoLOG) 100 UNIT/ML VIAL SQ SCH (20:52)
[2019-04-16] MEDS: SODIUM CHLORIDE 0.9% 1,000 ML IV SCH ×2 (05:05→16:30)
[2019-04-16 06:13] LABS: Basophils % (A) 1 %; Eosinophils # (A) 0.5 k/uL (0-0.7); Eosinophils % (A) 7 %; HCT 46.3 % (39.0-53.0); HGB 15.1 gm/dL (13.0-17.5); Lymphocytes # (A) 2.7 k/uL (1.0-4.8); Lymphocytes % (A) 41 %; MCH 28.5 pg (25.0-35.0); MCHC 32.7 g/dL (31.0-37.0); MCV 87.1 fL (80.0-100.0); Monocytes # (A) 0.6 k/uL (0-1.0); Monocytes % (A) 8 %; Neutrophils # (A) 2.6 k/uL (1.3-7.7); Neutrophils % (A) 40 %; Platelet Count 211 k/uL (150-450); RBC 5.32 m/uL (4.30-5.90); RDW 14.3 % (11.5-15.5); WBC 6.6 k/uL (3.8-10.6)
[2019-04-16 06:26] LABS: Anion Gap 6 mmol/L; Blood Urea Nitrogen 12 mg/dL (9-20); Calcium 8.7 mg/dL (8.4-10.2); Carbon Dioxide 30 mmol/L (22-30); Chloride 101 mmol/L (98-107); Glucose 248 mg/dL (74-99); Potassium 3.8 mmol/L (3.5-5.1); Sodium 137 mmol/L (137-145)
[2019-04-16 06:31] LABS: Glucose,Whole Blood 231 mg/dL (75-99)
[2019-04-16] MEDS: PANTOPRAZOLE 40 MG TABLET PO SCH (07:05)
[2019-04-16] MEDS: INSULIN ASPART (NovoLOG) 100 UNIT/ML VIAL SQ SCH ×4 (07:05→20:51)
[2019-04-16] MEDS: INSULN ASP PRT/INSULIN ASPART 100 UNIT/ML 10 ML VIAL SQ SCH ×2 (07:05→17:34)
[2019-04-16] MEDS: HEPARIN SODIUM,PORCINE 5,000 UNIT/ML 1 ML VIAL SQ SCH ×2 (07:53→20:51)
[2019-04-16] MEDS: HYDROmorphone 0.5 MG/0.5 ML SYRINGE IVP PRN (07:53)
[2019-04-16] MEDS: IPRATROPIUM-ALBUTEROL 3 ML NEB INHALATION SCH ×4 (08:18→20:04)
[2019-04-16 11:44] LABS: Glucose,Whole Blood 253 mg/dL (75-99)
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
[2019-04-16 16:56] LABS: Glucose,Whole Blood 379 mg/dL (75-99)
[2019-04-16 20:50] LABS: Glucose,Whole Blood 272 mg/dL (75-99)
[2019-04-16] MEDS: DOCUSATE 100 MG CAP PO PRN (20:50)
[2019-04-17] MEDS: SODIUM CHLORIDE 0.9% 1,000 ML IV SCH (05:49)
[2019-04-17 07:43] LABS: Glucose,Whole Blood 220 mg/dL (75-99)
[2019-04-17] MEDS: IPRATROPIUM-ALBUTEROL 3 ML NEB INHALATION SCH (08:05)
[2019-04-17] MEDS: INSULN ASP PRT/INSULIN ASPART 100 UNIT/ML 10 ML VIAL SQ SCH (08:31)
[2019-04-17] MEDS: INSULIN ASPART (NovoLOG) 100 UNIT/ML VIAL SQ SCH ×2 (08:31→13:32)
[2019-04-17] MEDS: PANTOPRAZOLE 40 MG TABLET PO SCH (08:31)
[2019-04-17] MEDS: HEPARIN SODIUM,PORCINE 5,000 UNIT/ML 1 ML VIAL SQ SCH (08:32)
[2019-04-17 08:54] LABS: Anion Gap 9 mmol/L; Blood Urea Nitrogen 13 mg/dL (9-20); Calcium 9.2 mg/dL (8.4-10.2); Carbon Dioxide 31 mmol/L (22-30); Chloride 99 mmol/L (98-107); Glucose 243 mg/dL (74-99); Sodium 139 mmol/L (137-145)
[2019-04-17 09:22] LABS: Basophils # (A) 0.1 k/uL (0-0.2); Basophils % (A) 1 %; Eosinophils # (A) 0.4 k/uL (0-0.7); Eosinophils % (A) 6 %; HCT 48.4 % (39.0-53.0); Lymphocytes # (A) 2.5 k/uL (1.0-4.8); Lymphocytes % (A) 37 %; MCH 28.8 pg (25.0-35.0); MCHC 33.1 g/dL (31.0-37.0); MCV 87.1 fL (80.0-100.0); Mean Platelet Volume 7.4; Monocytes # (A) 0.3 k/uL (0-1.0); Monocytes % (A) 5 %; Neutrophils # (A) 3.2 k/uL (1.3-7.7); Neutrophils % (A) 48 %; Platelet Count 260 k/uL (150-450); RBC 5.56 m/uL (4.30-5.90); RDW 14.1 % (11.5-15.5); WBC 6.6 k/uL (3.8-10.6)
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
[2019-04-17 12:07] LABS: Glucose,Whole Blood 310 mg/dL (75-99)
[2019-04-17 14:44] VITALS: BP 148/72; PULSE 81; RESP 16; TEMP 97.7
== END 2019-04-17 15:54 | disposition home or self-care (01) | DRG 638 ==
LOC: EC 15:45 → 4MS4W 18:16 → 3SCARD 22:14 → OBSVTOIN 04-14 17:36 → 4MS4W 04-16 22:25
PROVIDERS: ADMIT Hospitalist; ATTEND Hospitalist
DX: E11.10 Type 2 diabetes mellitus with ketoacidosis without coma (principal); J44.0 Chronic obstructive pulmonary disease with (acute) lower respiratory infection; G82.20 Paraplegia, unspecified; E87.1 Hypo-osmolality and hyponatremia; J20.9 Acute bronchitis, unspecified; E86.0 Dehydration; F43.10 Post-traumatic stress disorder, unspecified; M19.90 Unspecified osteoarthritis, unspecified site; K59.00 Constipation, unspecified; G43.909 Migraine, unspecified, not intractable, without status migrainosus; G47.30 Sleep apnea, unspecified; S06.890S Other specified intracranial injury without loss of consciousness, sequela; T14.8XXS Other injury of unspecified body region, sequela; I25.2 Old myocardial infarction; Z87.01 Personal history of pneumonia (recurrent); Z79.4 Long term (current) use of insulin; Z80.0 Family history of malignant neoplasm of digestive organs; Z80.52 Family history of malignant neoplasm of bladder; Z86.14 Personal history of Methicillin resistant Staphylococcus aureus infection; Z91.19 Patient's noncompliance with other medical treatment and regimen; Z99.89 Dependence on other enabling machines and devices; Z98.890 Other specified postprocedural states; Z88.0 Allergy status to penicillin; Z88.2 Allergy status to sulfonamides; Z88.7 Allergy status to serum and vaccine; Z99.3 Dependence on wheelchair
CPT/HCPCS: 36415; 71046; 71275; 72050; 80048; 80051; 80053; 81003; 82009; 82565; 82803; 82947; 83036; 83735; 84100; 84484; 84520; 85025; 85379; 85610; 85730; 93005; 94640; 96360; 96361; 99285

== ENCOUNTER 2019-05-23 14:44 | Emergency (ER) | payer MEDICARE ==
[2019-05-23 14:52] VITALS: BP 129/79; PULSE 89; RESP 18; TEMP 98.7
[2019-05-23] MEDS ORDERED: PROPARACAINE 0.5% OPHTH DROPS 15 ML BTL BOTH EYES STA (15:06)
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
== END 2019-05-23 16:30 | disposition home or self-care (01) ==
LOC: EC 14:44
DX: T15.02XA Foreign body in cornea, left eye, initial encounter (principal); E11.9 Type 2 diabetes mellitus without complications; G47.30 Sleep apnea, unspecified; Z88.0 Allergy status to penicillin; Z88.2 Allergy status to sulfonamides; Z88.7 Allergy status to serum and vaccine; Z79.4 Long term (current) use of insulin; Z86.14 Personal history of Methicillin resistant Staphylococcus aureus infection; Z86.73 Personal history of transient ischemic attack (TIA), and cerebral infarction without residual deficits; Z99.89 Dependence on other enabling machines and devices; Y93.89 Activity, other specified
CPT/HCPCS: 65220; 99283

== ENCOUNTER 2020-02-06 17:33 | Emergency (ER) | payer OTHER, MEDICARE ==
[2020-02-06 17:43] VITALS: BP 169/97; PULSE 83; RESP 19; TEMP 98.1
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
[2020-02-06 17:57] LABS: Glucose,Whole Blood 241 mg/dL (75-99)
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
[2020-02-06 18:14] LABS: Basophils # (A) 0.1 k/uL (0-0.2); Basophils % (A) 1 %; Eosinophils # (A) 0.4 k/uL (0-0.7); Eosinophils % (A) 5 %; HCT 49.5 % (39.0-53.0); HGB 16.6 gm/dL (13.0-17.5); Lymphocytes # (A) 2.4 k/uL (1.0-4.8); Lymphocytes % (A) 29 %; MCH 29.5 pg (25.0-35.0); MCHC 33.5 g/dL (31.0-37.0); MCV 88.2 fL (80.0-100.0); Mean Platelet Volume 7.3; Monocytes # (A) 0.6 k/uL (0-1.0); Monocytes % (A) 7 %; Neutrophils # (A) 4.6 k/uL (1.3-7.7); Neutrophils % (A) 56 %; Platelet Count 266 k/uL (150-450); RBC 5.61 m/uL (4.30-5.90); WBC 8.3 k/uL (3.8-10.6)
[2020-02-06 18:24] LABS: ALT 14 U/L (4-49); AST 19 U/L (17-59); African American GFR (CKD) >90 (>60 ml/min/1.73 sqM); Albumin 4.4 g/dL (3.5-5.0); Alcohol <10 mg/dL; Alkaline Phosphatase 95 U/L (38-126); Amylase 39 U/L (30-110); Anion Gap 8 mmol/L; Blood Urea Nitrogen 15 mg/dL (9-20); Calcium 9.5 mg/dL (8.4-10.2); Carbon Dioxide 27 mmol/L (22-30); Chloride 101 mmol/L (98-107); Glucose 254 mg/dL (74-99); INR 0.9 (<1.2); Non-African American GFR(CKD) >90 (>60 ml/min/1.73 sqM); Potassium 4.1 mmol/L (3.5-5.1); Prothrombin Time 9.5 sec (9.0-12.0); Sodium 136 mmol/L (137-145); Total Bilirubin 0.3 mg/dL (0.2-1.3); Total Protein 7.2 g/dL (6.3-8.2)
[2020-02-06 18:34] LABS: Creatine Kinase 63 U/L (55-170)
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
[2020-02-06 18:46] LABS: Creatine Kinase MB 1.2 ng/mL (0.0-2.4); Troponin I <0.012 ng/mL (0.000-0.034)
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
== END 2020-02-06 19:22 | disposition home or self-care (01) ==
LOC: EC 17:33
DX: S16.1XXA Strain of muscle, fascia and tendon at neck level, initial encounter (principal); R51 Headache; E11.9 Type 2 diabetes mellitus without complications; Z88.0 Allergy status to penicillin; Z88.2 Allergy status to sulfonamides; Z88.7 Allergy status to serum and vaccine; Z79.4 Long term (current) use of insulin; Z86.14 Personal history of Methicillin resistant Staphylococcus aureus infection; Z87.81 Personal history of (healed) traumatic fracture; Z98.890 Other specified postprocedural states; V03.99XA Pedestrian with other conveyance injured in collision with car, pick-up truck or van, unspecified whether traffic or nontraffic accident, initial encounter; Y92.410 Unspecified street and highway as the place of occurrence of the external cause
CPT/HCPCS: 36415; 93005; 86900; 86901; 80053; 82150; 82550; 82553; 83605; 83690; 84484; 85025; 85610; 85730; 86850; 80320; 72170; 71045; 72125; 70450; 71260; 74177; 99285; Q9967

== ENCOUNTER → 2020-04-25 | Outpatient (CLI) | payer MEDICARE ==
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
== END | disposition home or self-care (01) ==
LOC: RADXRMAIN 09:57
PROVIDERS: ATTEND Family Medicine
DX: M47.816 Spondylosis without myelopathy or radiculopathy, lumbar region (principal); M48.02 Spinal stenosis, cervical region; M47.814 Spondylosis without myelopathy or radiculopathy, thoracic region; Z98.1 Arthrodesis status
CPT/HCPCS: 72050; 72070; 72110

== ENCOUNTER 2020-05-02 13:13 | Emergency (ER) | payer MEDICARE ==
[2020-05-02 13:28] VITALS: RESP 16
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
[2020-05-02 14:24] VITALS: BP 118/85; PULSE 74; TEMP 98.2
== END 2020-05-02 14:23 | disposition home or self-care (01) ==
LOC: EC 13:13
DX: J02.9 Acute pharyngitis, unspecified (principal); E11.9 Type 2 diabetes mellitus without complications; I25.2 Old myocardial infarction; Z86.14 Personal history of Methicillin resistant Staphylococcus aureus infection; Z53.29 Procedure and treatment not carried out because of patient's decision for other reasons; G47.30 Sleep apnea, unspecified; Z99.89 Dependence on other enabling machines and devices; Z79.4 Long term (current) use of insulin; Z88.7 Allergy status to serum and vaccine; Z88.0 Allergy status to penicillin; Z88.2 Allergy status to sulfonamides
CPT/HCPCS: 87081; 87430; 99283

== ENCOUNTER → 2020-05-14 | Outpatient (CLI) | payer MEDICARE ==
--- NOTE | 2020-05-14 08:38 | US ---
EXAMINATION TYPE: US abdomen complete DATE OF EXAM: 05/14/2020 COMPARISON: CT February 06, 2020 CLINICAL HISTORY: R10.9 ABD PAIN,R53.1 WEAKNESS,M54.6 THORACIC SPINE PAIN. EXAM MEASUREMENTS: Liver Length: 14.6 cm Gallbladder Wall: 0.2 cm CBD: 0.3 cm Spleen: 11.9 cm Right Kidney: 12.6 x 4.6 x 5.4 cm Left Kidney: 12.8 x 6.3 x 5.7 cm Pancreas: Obscured by bowel gas Liver: wnl Gallbladder: cholelithiasis Evidence for sonographic Allred's sign: no CBD: short segment visualized due to overlying bowel gas appears wnl Spleen: wnl Right Kidney: measures upper limits of normal, no hydronephrosis or masses seen Left Kidney: measures upper limits of normal, no hydronephrosis or masses seen Upper IVC: wnl Abd Aorta: proximal and bifurcation obscured by bowel gas, appears wnl as seen The visualized liver is homogenous. The intrahepatic portion of the IVC and visualized portion of ab dominal aorta are within normal limits. There are multiple mobile shadowing gallstones. No surround ing fluid or abnormal gallbladder wall thickening Common bile duct is unremarkable. Suboptimal evalua tion of pancreas secondary to shadowing from overlying bowel gas on images saved. The spleen is unre markable. Kidneys are symmetric and free of hydronephrosis. No renal lesions are seen on images kevin ed. IMPRESSION: Gallstones without secondary ultrasound evidence for acute cholecystitis. Source of acute abdominal pain not identified.
== END | disposition home or self-care (01) ==
LOC: RADUSWWP 07:08
PROVIDERS: ATTEND Family Medicine
DX: K80.20 Calculus of gallbladder without cholecystitis without obstruction (principal); M54.6 Pain in thoracic spine; R53.1 Weakness
CPT/HCPCS: 76700

== ENCOUNTER 2020-07-27 18:21 | Emergency (ER) | payer MEDICARE ==
[2020-07-27 18:30] VITALS: RESP 18; TEMP 98.6
[2020-07-27 19:19] LABS: Appearance,Urine Clear (Clear); Bilirubin,Urine Negative (Negative); Blood,Urine Negative (Negative); Color,Urine Light Yellow; Glucose,Urine (UA) 4+ (Negative); Ketones,Urine Trace (Negative); Leukocyte Esterase,Urine Negative (Negative); Nitrite,Urine Negative (Negative); Protein,Urine Negative (Negative); Specific Gravity,Urine 1.033 (1.001-1.035); Urobilinogen,Urine <2.0 mg/dL (<2.0)
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
[2020-07-27 19:26] LABS: Basophils # (A) 0.1 k/uL (0-0.2); Basophils % (A) 1 %; Eosinophils # (A) 0.4 k/uL (0-0.7); Eosinophils % (A) 4 %; HCT 49.6 % (39.0-53.0); HGB 16.2 gm/dL (13.0-17.5); Lymphocytes # (A) 1.8 k/uL (1.0-4.8); Lymphocytes % (A) 21 %; MCH 29.4 pg (25.0-35.0); MCHC 32.7 g/dL (31.0-37.0); Mean Platelet Volume 7.3; Monocytes # (A) 0.5 k/uL (0-1.0); Monocytes % (A) 5 %; Neutrophils # (A) 5.9 k/uL (1.3-7.7); Neutrophils % (A) 67 %; Platelet Count 223 k/uL (150-450); RBC 5.51 m/uL (4.30-5.90); RDW 12.9 % (11.5-15.5); WBC 8.8 k/uL (3.8-10.6)
[2020-07-27 19:30] LABS: ALT 14 U/L (4-49); AST 18 U/L (17-59); African American GFR (CKD) >90 (>60 ml/min/1.73 sqM); Albumin 4.1 g/dL (3.5-5.0); Alkaline Phosphatase 95 U/L (38-126); Anion Gap 9 mmol/L; Blood Urea Nitrogen 15 mg/dL (9-20); Calcium 9.3 mg/dL (8.4-10.2); Carbon Dioxide 23 mmol/L (22-30); Chloride 103 mmol/L (98-107); Creatine Kinase 77 U/L (55-170); Glucose 431 mg/dL (74-99); Non-African American GFR(CKD) >90 (>60 ml/min/1.73 sqM); Potassium 4.7 mmol/L (3.5-5.1); Sodium 135 mmol/L (137-145); Total Bilirubin 0.6 mg/dL (0.2-1.3); Total Protein 6.6 g/dL (6.3-8.2)
[2020-07-27 19:37] LABS: INR 0.9 (<1.2); Partial Thromboplastin Time 22.1 sec (22.0-30.0); Prothrombin Time 9.6 sec (9.0-12.0)
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
[2020-07-27] MEDS ORDERED: SODIUM CHLORIDE 0.9% 1,000 ML IV ONE (19:43)
[2020-07-27] MEDS ORDERED: INSULIN REGULAR 100 UNIT/ML VIAL SQ ONE (20:19)
[2020-07-27 20:41] LABS: Glucose,Whole Blood 271 mg/dL (75-99)
[2020-07-27 20:43] VITALS: BP 143/76; PULSE 73
== END 2020-07-27 21:18 | disposition home or self-care (01) ==
LOC: EC 18:21
DX: E11.65 Type 2 diabetes mellitus with hyperglycemia (principal); G47.30 Sleep apnea, unspecified; Z79.4 Long term (current) use of insulin; Z88.7 Allergy status to serum and vaccine; Z88.0 Allergy status to penicillin; Z88.2 Allergy status to sulfonamides; Z99.89 Dependence on other enabling machines and devices; Z86.14 Personal history of Methicillin resistant Staphylococcus aureus infection
CPT/HCPCS: 36415; 71046; 80053; 81003; 82550; 83605; 83735; 83880; 84443; 84484; 85025; 85610; 85730; 93005; 96360; 99285

== ENCOUNTER → 2020-09-03 | Outpatient (CLI) | payer MEDICARE, OTHER ==
[2020-09-03 14:11] LABS: HCT 49.6 % (39.0-53.0); HGB 16.2 gm/dL (13.0-17.5); MCH 30.1 pg (25.0-35.0); MCHC 32.7 g/dL (31.0-37.0); Mean Platelet Volume 7.7; Platelet Count 277 k/uL (150-450); RBC 5.39 m/uL (4.30-5.90); RDW 13.3 % (11.5-15.5); WBC 8.7 k/uL (3.8-10.6)
[2020-09-03 14:12] LABS: Appearance,Urine Clear (Clear); Bilirubin,Urine Negative (Negative); Blood,Urine Negative (Negative); Color,Urine Yellow; Glucose,Urine (UA) 3+ (Negative); Ketones,Urine 1+ (Negative); Leukocyte Esterase,Urine Negative (Negative); Nitrite,Urine Negative (Negative); Protein,Urine Negative (Negative); Specific Gravity,Urine 1.025 (1.001-1.035); Urobilinogen,Urine <2.0 mg/dL (<2.0)
[2020-09-03 14:23] LABS: African American GFR (CKD) >90 (>60 ml/min/1.73 sqM); Anion Gap 7 mmol/L; Blood Urea Nitrogen 16 mg/dL (9-20); Calcium 9.2 mg/dL (8.4-10.2); Carbon Dioxide 25 mmol/L (22-30); Chloride 104 mmol/L (98-107); Glucose 230 mg/dL (74-99); Non-African American GFR(CKD) >90 (>60 ml/min/1.73 sqM); Potassium 4.2 mmol/L (3.5-5.1); Sodium 136 mmol/L (137-145)
[2020-09-03 22:29] LABS: Hemoglobin A1C 10.5 % (4.0-6.0)
== END | disposition home or self-care (01) ==
LOC: LABWHC1 11:42
PROVIDERS: ATTEND Neurological Surgery
DX: Z01.818 Encounter for other preprocedural examination (principal)
CPT/HCPCS: 36415; 80048; 81003; 83036; 85027

== ENCOUNTER 2020-09-13 08:47 | Observation (INO) | payer MEDICARE ==
[2020-09-13 09:16] LABS: Glucose,Whole Blood 277 mg/dL (75-99)
[2020-09-13] MEDS ORDERED: NALOXONE 0.4 MG/ML 1 ML VIAL IVP STA (09:30)
[2020-09-13 09:40] LABS: Glucose,Whole Blood 282 mg/dL (75-99)
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
--- NOTE | 2020-09-13 09:46 | XR ---
EXAMINATION TYPE: XR chest 1V DATE OF EXAM: 09/13/2020 COMPARISON: 07/27/2020 HISTORY: 55-year-old male altered mental status, confusion TECHNIQUE: Single frontal view of the chest is obtained. FINDINGS: ACDF hardware. Heart is borderline enlarged. Large patient body habitus and portable technique as haz y densities over the lungs. Difficult to exclude subtle interstitial densities. No sizable effusion. IMPRESSION: Limitations due to large patient body habitus and portable technique. Unable to exclude very subtle i nterstitial infiltrates. Consider a high quality PA and lateral view when patient able.
[2020-09-13 10:13] LABS: ABG Base Excess -0.2 mmol/L; ABG HCO3 26 mmol/L (21-25); ABG Oxygen Saturation 98.6 % (94-97); ABG PCO2 48 mmHg (35-45); ABG PH 7.33 (7.35-7.45); ABG PO2 105 mmHg (83-108); ABG TCO2 27 mmol/L (19-24); Allen Test Performed? Yes
[2020-09-13 10:16] LABS: Basophils % (A) 0 %; Eosinophils # (A) 0.1 k/uL (0-0.7); Eosinophils % (A) 1 %; HCT 43.5 % (39.0-53.0); HGB 14.9 gm/dL (13.0-17.5); Lymphocytes # (A) 0.9 k/uL (1.0-4.8); Lymphocytes % (A) 7 %; MCH 31.6 pg (25.0-35.0); MCHC 34.3 g/dL (31.0-37.0); MCV 92.1 fL (80.0-100.0); Mean Platelet Volume 7.3; Monocytes # (A) 0.3 k/uL (0-1.0); Monocytes % (A) 3 %; Neutrophils # (A) 10.6 k/uL (1.3-7.7); Neutrophils % (A) 88 %; Platelet Count 211 k/uL (150-450); RBC 4.73 m/uL (4.30-5.90); RDW 12.7 % (11.5-15.5); WBC 12.1 k/uL (3.8-10.6)
[2020-09-13 10:22] LABS: Appearance,Urine Clear (Clear); Bilirubin,Urine Negative (Negative); Blood,Urine Negative (Negative); Color,Urine Yellow; Glucose,Urine (UA) 4+ (Negative); Ketones,Urine Negative (Negative); Leukocyte Esterase,Urine Negative (Negative); Nitrite,Urine Negative (Negative); Protein,Urine Trace (Negative); Specific Gravity,Urine 1.035 (1.001-1.035); Urobilinogen,Urine <2.0 mg/dL (<2.0)
[2020-09-13 10:27] LABS: Acetaminophen <10.0 ug/mL; Salicylate <1.0 mg/dL
[2020-09-13 10:28] LABS: ALT 13 U/L (4-49); African American GFR (CKD) >90 (>60 ml/min/1.73 sqM); Alcohol <10 mg/dL; Anion Gap 6 mmol/L; Blood Urea Nitrogen 19 mg/dL (9-20); Calcium 8.4 mg/dL (8.4-10.2); Carbon Dioxide 24 mmol/L (22-30); Chloride 105 mmol/L (98-107); Glucose 300 mg/dL (74-99); Non-African American GFR(CKD) >90 (>60 ml/min/1.73 sqM); Sodium 135 mmol/L (137-145); Total Bilirubin 0.7 mg/dL (0.2-1.3)
[2020-09-13 10:32] LABS: AST 25 U/L (17-59); Albumin 3.7 g/dL (3.5-5.0); Alkaline Phosphatase 76 U/L (38-126); INR 0.9 (<1.2); Prothrombin Time 9.8 sec (9.0-12.0); Total Protein 6.4 g/dL (6.3-8.2)
[2020-09-13 10:35] LABS: Partial Thromboplastin Time 19.3 sec (22.0-30.0)
[2020-09-13 10:48] LABS: Amphetamine Screen,Urine Not Detected (NotDetected); Barbiturate Screen,Urine Not Detected (NotDetected); Benzodiazepines Screen,Urine Not Detected (NotDetected); Cocaine Screen,Urine Not Detected (NotDetected); Methadone Screen, Urine Not Detected (NotDetected); Opiate Screen,Urine Not Detected (NotDetected); Oxycodone Screen, Urine Not Detected (NotDetected); Phencyclidine Screen,Urine Not Detected (NotDetected); Tricyclic Antidepressant,Urine Not Detected (NotDetected); Urn Cannabinoid Scrn Detected (NotDetected)
[2020-09-13] MEDS ORDERED: SODIUM CHLORIDE 0.9% 1,000 ML IV ONE (11:00)
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
[2020-09-13] MEDS ORDERED: NALOXONE 0.4 MG/ML 1 ML VIAL IV PRN (12:25)
[2020-09-13] MEDS ORDERED: ACETAMINOPHEN TAB 500 MG TAB PO PRN (14:03)
[2020-09-13] MEDS ORDERED: ALPRAZolam 0.25 MG TAB PO PRN (14:03)
[2020-09-13] MEDS ORDERED: glipiZIDE 10 MG TAB PO SCH (14:15)
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
[2020-09-13] MEDS: SODIUM CHLORIDE 0.9% 1,000 ML IV SCH (14:58)
[2020-09-13] MEDS: glipiZIDE 10 MG TAB PO SCH (15:20)
[2020-09-13 20:32] LABS: Glucose,Whole Blood 223 mg/dL (75-99)
[2020-09-13] MEDS: HEPARIN SODIUM,PORCINE 5,000 UNIT/ML 1 ML VIAL SQ SCH (20:43)
[2020-09-13] MEDS: INSULIN ASPART (NovoLOG) 100 UNIT/ML VIAL SQ SCH (20:44)
[2020-09-14] MEDS: SODIUM CHLORIDE 0.9% 1,000 ML IV SCH ×2 (04:02→07:38)
[2020-09-14 06:21] LABS: Basophils % (A) 0 %; Eosinophils # (A) 0.2 k/uL (0-0.7); Eosinophils % (A) 3 %; HCT 44.1 % (39.0-53.0); Lymphocytes # (A) 2.6 k/uL (1.0-4.8); Lymphocytes % (A) 26 %; MCH 29.7 pg (25.0-35.0); MCHC 31.9 g/dL (31.0-37.0); MCV 93.2 fL (80.0-100.0); Mean Platelet Volume 7.3; Monocytes # (A) 0.5 k/uL (0-1.0); Monocytes % (A) 5 %; Neutrophils # (A) 6.3 k/uL (1.3-7.7); Neutrophils % (A) 65 %; Platelet Count 216 k/uL (150-450); RBC 4.73 m/uL (4.30-5.90); RDW 13.5 % (11.5-15.5); WBC 9.8 k/uL (3.8-10.6)
[2020-09-14 06:53] LABS: Glucose,Whole Blood 220 mg/dL (75-99)
[2020-09-14] MEDS ORDERED: PANTOPRAZOLE 40 MG TABLET PO SCH (07:30)
[2020-09-14] MEDS: HEPARIN SODIUM,PORCINE 5,000 UNIT/ML 1 ML VIAL SQ SCH (07:38)
[2020-09-14] MEDS: glipiZIDE 10 MG TAB PO SCH (07:38)
[2020-09-14] MEDS: INSULIN ASPART (NovoLOG) 100 UNIT/ML VIAL SQ SCH ×2 (07:38→11:44)
[2020-09-14 09:26] LABS: African American GFR (CKD) 114.9 (60.0-200.0); Anion Gap 5.1 mmol/L (4.00-12.00); Calcium 8.4 mg/dL (8.7-10.3); Carbon Dioxide 25.9 mmol/L (21.6-31.8); Non-African American GFR(CKD) 99.2 (60.0-200.0)
[2020-09-14 11:25] LABS: Glucose,Whole Blood 216 mg/dL (75-99)
[2020-09-14 14:10] VITALS: BP 144/78; PULSE 77; RESP 17; TEMP 98.2
[2020-09-14 16:34] LABS: Glucose,Whole Blood 164 mg/dL (75-99)
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
== END 2020-09-14 17:00 | disposition home or self-care (01) ==
LOC: EC 08:47 → 4SSUR 14:03
PROVIDERS: ADMIT Hospitalist; ATTEND Hospitalist
DX: R41.82 Altered mental status, unspecified (principal); D72.829 Elevated white blood cell count, unspecified; E87.1 Hypo-osmolality and hyponatremia; E11.65 Type 2 diabetes mellitus with hyperglycemia; G82.20 Paraplegia, unspecified; J44.9 Chronic obstructive pulmonary disease, unspecified; R41.3 Other amnesia; I25.2 Old myocardial infarction; G47.30 Sleep apnea, unspecified; G43.909 Migraine, unspecified, not intractable, without status migrainosus; K58.9 Irritable bowel syndrome, unspecified; F32.9 Major depressive disorder, single episode, unspecified; F43.10 Post-traumatic stress disorder, unspecified; R11.2 Nausea with vomiting, unspecified; R61 Generalized hyperhidrosis; M19.90 Unspecified osteoarthritis, unspecified site; Z79.84 Long term (current) use of oral hypoglycemic drugs; Z88.0 Allergy status to penicillin; Z88.2 Allergy status to sulfonamides; Z88.7 Allergy status to serum and vaccine; Z87.828 Personal history of other (healed) physical injury and trauma; Z87.01 Personal history of pneumonia (recurrent); Z99.89 Dependence on other enabling machines and devices; Z87.11 Personal history of peptic ulcer disease; Z86.14 Personal history of Methicillin resistant Staphylococcus aureus infection; Z79.899 Other long term (current) drug therapy; Z79.2 Long term (current) use of antibiotics; Z85.118 Personal history of other malignant neoplasm of bronchus and lung; Z80.0 Family history of malignant neoplasm of digestive organs; Z80.52 Family history of malignant neoplasm of bladder
CPT/HCPCS: 96361 ×3; 96372 ×2; 51701; 96365; 96375; 99285; 36415; 36600; 93005; 80053; 80048; 82140; 82805; 84484; 85025 ×2; 85610; 85730; 81003; 87040; 80306; 83520; 71045; 70450; G0378 ×2; G0480 ×2; U0003; J1644 ×2; J2310; J0696; 80320; 80329

== ENCOUNTER 2020-09-29 21:47 | Emergency (ER) | payer MEDICARE ==
[2020-09-29 21:53] VITALS: RESP 18; TEMP 98.7
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
--- NOTE | 2020-09-29 23:18 | XR ---
EXAMINATION TYPE: XR chest 1V DATE OF EXAM: 09/29/2020 COMPARISON: 09/13/2020 HISTORY: Short of breath TECHNIQUE: Single view FINDINGS: Heart is normal. Lungs are clear of consolidation. There are no hilar masses. Bony thorax i s intact. Pulmonary vascularity is normal. IMPRESSION: Normal chest. No change.
[2020-09-30 00:07] VITALS: BP 126/75; PULSE 85
== END 2020-09-30 00:07 | disposition home or self-care (01) ==
LOC: EC 21:47
DX: J45.909 Unspecified asthma, uncomplicated (principal); E11.9 Type 2 diabetes mellitus without complications; I25.2 Old myocardial infarction; G47.30 Sleep apnea, unspecified; Z20.828 Contact with and (suspected) exposure to other viral communicable diseases; Z88.7 Allergy status to serum and vaccine; Z88.0 Allergy status to penicillin; Z88.2 Allergy status to sulfonamides; Z91.018 Allergy to other foods; Z79.84 Long term (current) use of oral hypoglycemic drugs; Z99.89 Dependence on other enabling machines and devices; Z86.14 Personal history of Methicillin resistant Staphylococcus aureus infection
CPT/HCPCS: 71045; 87635; 99285

== ENCOUNTER 2021-01-24 12:19 | Emergency (ER) | payer OTHER, MEDICARE ==
[2021-01-24 12:31] VITALS: TEMP 97.8
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
[2021-01-24 14:14] VITALS: PULSE 88; RESP 18
[2021-01-24 14:30] VITALS: BP 123/76
== END 2021-01-24 14:37 | disposition home or self-care (01) ==
LOC: EC 12:19
DX: S16.1XXA Strain of muscle, fascia and tendon at neck level, initial encounter (principal); E11.9 Type 2 diabetes mellitus without complications; I25.2 Old myocardial infarction; J44.9 Chronic obstructive pulmonary disease, unspecified; K58.9 Irritable bowel syndrome, unspecified; Z79.52 Long term (current) use of systemic steroids; Z79.84 Long term (current) use of oral hypoglycemic drugs; Z87.11 Personal history of peptic ulcer disease; Z88.0 Allergy status to penicillin; Z88.2 Allergy status to sulfonamides; Y92.410 Unspecified street and highway as the place of occurrence of the external cause; V00.811A Fall from moving wheelchair (powered), initial encounter
CPT/HCPCS: 71045; 72125; 72128; 72131; 72170; 99284

== ENCOUNTER → 2021-02-26 | Outpatient (CLI) | payer MEDICARE, OTHER | END | disposition home or self-care (01) | LOC: LABWHC1 11:48 | PROVIDERS: ATTEND Nurse Practitioner Family | DX: Z20.822 Contact with and (suspected) exposure to COVID-19 (principal) | CPT/HCPCS: U0003; C9803; U0005 ==

== ENCOUNTER → 2021-04-29 | Outpatient (CLI) | payer MEDICARE ==
--- NOTE | 2021-04-29 15:09 | XR ---
EXAMINATION TYPE: XR cervical spine comp DATE OF EXAM: 04/29/2021 COMPARISON: 04/25/2020 HISTORY: 55-year-old male M47.12, Z01.818. Previous spine surgery in 2018. TECHNIQUE: 6 views including flexion-extension views FINDINGS: ACDF changes from C4 through C7 levels. Grade 1 retrolisthesis above the fusion at C3-C4. There may b e a trace grade 1 anterolisthesis below the fusion at C7-T1. Normal odontoid view. On flexion and ext ension, no dynamic spondylolisthesis above the fusion at C3-C4. The cervicothoracic junction is not w ell seen on the flexion-extension views. IMPRESSION: 1. Status post C4-C7 ACDF. 2. Fixed degenerative grade 1 retrolisthesis above the fusion at C3-C4. 3. Trace grade 1 anterolisthesis below the fusion at C7-T1. The cervicothoracic junction is not adequ ately visualized on the flexion-extension views to assess for dynamic subluxation at this level.
[2021-04-29 15:16] LABS: Appearance,Urine Clear (Clear); Bilirubin,Urine Negative (Negative); Blood,Urine Negative (Negative); Color,Urine Yellow; Glucose,Urine (UA) 4+ (Negative); Ketones,Urine Trace (Negative); Leukocyte Esterase,Urine Negative (Negative); Nitrite,Urine Negative (Negative); PH, Urine 5.5 (5.0-8.0); Protein,Urine Negative (Negative); Specific Gravity,Urine 1.036 (1.001-1.035); Urobilinogen,Urine <2.0 mg/dL (<2.0)
[2021-04-29 19:13] LABS: HGB 14.7 g/dL (13.0-17.0); MCH 30.2 pg (27.0-32.0); MCHC 34.2 g/dL (32.0-37.0); MCV 88.3 fL (80.0-97.0); Mean Platelet Volume 10.8 fL (9.5-12.2); Platelet Count 247 X 10*3/uL (140-440); RBC 4.87 X 10*6/uL (4.40-5.60); RDW 12.6 % (11.5-14.5); WBC 6.52 X 10*3/uL (4.50-10.00)
[2021-04-29 23:08] LABS: African American GFR (CKD) 109.5 (60.0-200.0); Albumin 4.2 g/dL (3.80-4.90); Anion Gap 10.7 mmol/L (4.00-12.00); BUN/Creat Ratio 21.11 Ratio (12.00-20.00); Calcium 8.5 mg/dL (8.7-10.3); Carbon Dioxide 23.3 mmol/L (21.6-31.8); Globulin 2.1 g/dL (1.6-3.3); Non-African American GFR(CKD) 94.5 (60.0-200.0); Potassium 3.8 mmol/L (3.5-5.5); Total Bilirubin 0.4 mg/dL (0.3-1.2); Total Protein 6.3 g/dL (6.2-8.2)
== END | disposition home or self-care (01) ==
LOC: LABWHC1 13:57
PROVIDERS: ATTEND Neurological Surgery
DX: Z01.818 Encounter for other preprocedural examination (principal); M47.12 Other spondylosis with myelopathy, cervical region; M43.12 Spondylolisthesis, cervical region; Z98.1 Arthrodesis status; E13.69 Other specified diabetes mellitus with other specified complication
CPT/HCPCS: 36415; 72050; 80053; 81003; 83036; 85027; 86850; 86900; 86901

== ENCOUNTER 2021-09-07 13:04 | Emergency (ER) | payer MEDICARE ==
[2021-09-07 13:15] VITALS: BP 133/89; PULSE 86; RESP 16; TEMP 98.3
[2021-09-07] MEDS ORDERED: diphenhydrAMINE 25 MG CAP PO STA (13:29)
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
== END 2021-09-07 14:42 | disposition home or self-care (01) ==
LOC: EC 13:04 → SUPCPDRO 13:04 → EC 14:42
DX: T63.441A Toxic effect of venom of bees, accidental (unintentional), initial encounter (principal); E11.9 Type 2 diabetes mellitus without complications; J44.9 Chronic obstructive pulmonary disease, unspecified; I25.2 Old myocardial infarction; Z79.52 Long term (current) use of systemic steroids; Z79.84 Long term (current) use of oral hypoglycemic drugs; Z79.51 Long term (current) use of inhaled steroids; Z88.0 Allergy status to penicillin; Z88.2 Allergy status to sulfonamides
CPT/HCPCS: 99283

== ENCOUNTER → 2021-10-13 | Outpatient (CLI) | payer MEDICARE | END | disposition home or self-care (01) | LOC: LABWHC1 11:26 | PROVIDERS: ATTEND Family Medicine | DX: Z20.822 Contact with and (suspected) exposure to COVID-19 (principal); R06.02 Shortness of breath; R09.89 Other specified symptoms and signs involving the circulatory and respiratory systems; R52 Pain, unspecified | CPT/HCPCS: U0003; C9803 ==

== ENCOUNTER → 2021-11-19 | Outpatient (CLI) | payer MEDICARE ==
--- NOTE | 2021-11-20 03:43 | MR ---
EXAMINATION TYPE: MR lumbar spine wo/w con DATE OF EXAM: 11/19/2021 COMPARISON: 07/12/2017 HISTORY: Lower back pain with bilateral leg weakness CONTRAST: Standard multiplanar, multisequence MRI departmental protocol images were obtained without contrast a nd with 9ml mL intravenous Gadavist gadolinium contrast. The lumbar vertebrae have normal alignment. Disc spaces are fairly normal for age. There is no compre ssion fracture. There is mild concentric posterior disc bulging from L2 to L5. There is developmental delay adequate spinal canal and no significant spinal stenosis. There is no lumbar paraspinal mass. The neural foramina show no significant narrowing. Sacroiliac joints are not well seen. The contrast images show no pathologic enhancement. IMPRESSION: Posterior disc bulging from L2 to L5 appears slightly increased compared to old exam. No spinal steno sis. No fracture. There is decrease in the posterior disc bulging at L5-S1 compared to old exam.
== END | disposition home or self-care (01) ==
LOC: RADMRIMAIN 18:02
PROVIDERS: ATTEND Neurological Surgery
DX: M51.17 Intervertebral disc disorders with radiculopathy, lumbosacral region (principal)
CPT/HCPCS: 72158; A9585

== ENCOUNTER 2023-03-16 03:28 | Emergency (ER) | payer MEDICARE ==
[2023-03-16] MEDS ORDERED: IPRATROPIUM-ALBUTEROL 3 ML NEB INHALATION STA (05:25)
[2023-03-16] MEDS ORDERED: ALBUTEROL NEBULIZED 2.5 MG/3 ML INHALATION STA (05:25)
[2023-03-16] MEDS ORDERED: predniSONE 20 MG TAB PO STA (05:25)
--- NOTE | 2023-03-16 05:45 | XR ---
EXAMINATION TYPE: XR chest 2V DATE OF EXAM: 03/16/2023 COMPARISON: Chest x-ray January 24, 2021 HISTORY: Cough. TECHNIQUE: Frontal and lateral views of the chest are obtained. FINDINGS: There is no focal air space opacity, pleural effusion, or pneumothorax seen. The cardiac silhouette size is within normal limits. Long segment fusion plate in the cervical spine is noted. IMPRESSION: No acute pulmonary infiltrate.
[2023-03-16 06:07] VITALS: RESP 20
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
[2023-03-16 06:43] VITALS: BP 139/84; PULSE 98; TEMP 98.7
== END 2023-03-16 06:43 | disposition home or self-care (01) ==
LOC: EC 03:28
DX: J40 Bronchitis, not specified as acute or chronic (principal); E11.9 Type 2 diabetes mellitus without complications; G47.30 Sleep apnea, unspecified; I25.2 Old myocardial infarction; J44.9 Chronic obstructive pulmonary disease, unspecified; F41.9 Anxiety disorder, unspecified; F32.A Depression, unspecified; Z79.899 Other long term (current) drug therapy; Z88.0 Allergy status to penicillin; Z88.1 Allergy status to other antibiotic agents; Z88.2 Allergy status to sulfonamides; Z88.7 Allergy status to serum and vaccine; Z91.030 Bee allergy status; Z20.822 Contact with and (suspected) exposure to COVID-19
CPT/HCPCS: 94640; 87636; 71046; 99284; J7512

== ENCOUNTER 2023-04-30 13:25 | Emergency (ER) | payer MEDICARE ==
[2023-04-30 13:29] VITALS: TEMP 97.9
--- NOTE | 2023-04-30 14:33 | XR ---
EXAMINATION TYPE: XR Hip LT and AP Pelvis DATE OF EXAM: 04/30/2023 COMPARISON: 05/04/2017 HISTORY: Low back pain and left hip pain TECHNIQUE: A single AP view of the pelvis is obtained. Two views of the left hip are obtained. FINDINGS: There is no acute fracture/dislocation evident in the pelvis. The hip and sacroiliac join ts appear symmetric and unremarkable. The overlying soft tissue appears unremarkable. Two views of left hip show no acute fracture or dislocation. There are mild osteoarthritic changes wi th hypertrophic spurring of the acetabuli. There appears to be a chronic well-corticated avulsion inj ury to the lesser trochanter of the left femur. IMPRESSION: There is no acute fracture or dislocation in the pelvis or left hip. Questionable chron ic avulsion injury of the lesser trochanter of the left femur. Mild osteoarthritic changes of the lef t joint.
--- NOTE | 2023-04-30 14:37 | XR ---
Lumbar spine. HISTORY: Pain. COMPARISON: 04/25/2020. TECHNIQUE: 5 views of the lumbar spine were obtained. FINDINGS: The lumbar vertebral segments are normal in height and alignment and there is no fracture subluxation . There is mild degenerative disc disease throughout the lumbar region where there is moderate spondylo sis but no significant disc space narrowing. There are postsurgical changes of laminectomy at the L5-S1 level. There is no spondylolysis. There is mild facet arthropathy in the lower lumbar spine at the L4-5 and L5-S1 levels. The visualized sacrum and SI joints normal. IMPRESSION: 1. No change in the mild diffuse degenerative disc disease. 2. Interval laminectomy changes at the L5-S1 level. 3. No spondylolysis or spondylolisthesis. 4. No lumbar spine fracture or malalignment.
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
[2023-04-30 15:14] VITALS: BP 145/79; PULSE 78; RESP 18
== END 2023-04-30 15:26 | disposition home or self-care (01) ==
LOC: EC 13:25
DX: M54.16 Radiculopathy, lumbar region (principal); J44.9 Chronic obstructive pulmonary disease, unspecified; E11.9 Type 2 diabetes mellitus without complications; I25.2 Old myocardial infarction; G47.30 Sleep apnea, unspecified; F41.9 Anxiety disorder, unspecified; F32.A Depression, unspecified; Z79.84 Long term (current) use of oral hypoglycemic drugs; Z79.899 Other long term (current) drug therapy; Z91.030 Bee allergy status; Z88.7 Allergy status to serum and vaccine; Z88.2 Allergy status to sulfonamides; Z88.1 Allergy status to other antibiotic agents; Z88.0 Allergy status to penicillin; Z88.8 Allergy status to other drugs, medicaments and biological substances
CPT/HCPCS: 72110; 73502; 99283

== ENCOUNTER 2023-09-15 13:05 | Emergency (ER) | payer MEDICARE ==
[2023-09-15] MEDS ORDERED: HYDROmorphone 1 MG/ML 1 ML SYRINGE IVP STA ×2 (13:35→15:05)
[2023-09-15] MEDS ORDERED: KETOROLAC 15 MG/ML 1 ML VIAL IVP STA (13:35)
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
--- NOTE | 2023-09-15 14:41 | CT ---
EXAMINATION TYPE: CT lumbar spine wo con DATE OF EXAM: 09/15/2023 COMPARISON: 01/24/2021 HISTORY: Fall, back pain CT DLP: 1035.[address] of the lumbar spine was performed. Bone and soft tissue window settings are submitted as well as coronal and sagittal reconstructions. L1-L2: Normal disc space height. No disc herniation protrusion or central stenosis. No facet joint arthropathy. No evidence for foraminal encroachment. L2-L3: Normal disc space height. No disc herniation protrusion or central stenosis. No facet joint arthropathy. No evidence for foraminal encroachment. L3-L4: Moderate degenerative disc space narrowing. Posterior disc bulge with encapsulating spur. Effa cement ventral thecal sac with mild central stenosis. Bilateral neural foraminal encroachment. L4-L5: Decompressive laminectomy. Moderate disc space narrowing. Posterior disc bulge. Bilateral fora elena encroachment. L5-S1: Decompressive laminectomy. Moderate disc space narrowing. Posterior disc bulge. Bilateral fora elena encroachment. No paraspinal masses are identified. Lumbar segments are free if fracture. IMPRESSION: 1. No evidence for fracture or malalignment. 2. Degenerative and postoperative changes noted.
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
[2023-09-15] MEDS ORDERED: ORPHENADRINE 30 MG/ML 2 ML VIAL IVP STA (15:05)
[2023-09-15 15:53] VITALS: BP 155/82; PULSE 82; RESP 16; TEMP 98.9
== END 2023-09-15 19:08 | disposition home or self-care (01) ==
LOC: EC 13:05
DX: S30.0XXA Contusion of lower back and pelvis, initial encounter (principal); E11.9 Type 2 diabetes mellitus without complications; J44.9 Chronic obstructive pulmonary disease, unspecified; I25.2 Old myocardial infarction; G47.30 Sleep apnea, unspecified; F12.90 Cannabis use, unspecified, uncomplicated; Z79.4 Long term (current) use of insulin; Z79.899 Other long term (current) drug therapy; Z88.2 Allergy status to sulfonamides; Z88.0 Allergy status to penicillin; Z88.7 Allergy status to serum and vaccine; Z88.8 Allergy status to other drugs, medicaments and biological substances; W19.XXXA Unspecified fall, initial encounter
CPT/HCPCS: 72125; 72131; 99284; 96374; 96375 ×2; 96376; J2360; J1170; J1885

== ENCOUNTER 2024-03-26 12:20 | Emergency (ER) | payer MEDICARE ==
[2024-03-26 13:04] VITALS: RESP 18
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
--- NOTE | 2024-03-26 13:41 | XR ---
EXAMINATION TYPE: XR chest 2V DATE OF EXAM: 03/26/2024 COMPARISON: 03/16/2023 HISTORY: Syncope TECHNIQUE: Frontal and lateral views of the chest are obtained. FINDINGS: There is no focal air space opacity, pleural effusion, or pneumothorax seen. The cardiac silhouette size is within normal limits. The pulmonary vasculature is not congested. Postsurgical changes of cervical fusion. IMPRESSION: No acute cardiopulmonary process.
--- NOTE | 2024-03-26 13:51 | CT ---
EXAMINATION TYPE: CT brain wo con DATE OF EXAM: 03/26/2024 COMPARISON: 09/13/2020 HISTORY: Syncope CT DLP: 1138.4 mGycm Automated exposure control for dose reduction was used. Findings: The ventricles, basal cisterns and sulci over the convexities are within normal limits and there is n o mass effect or shift of midline structures. No abnormal density is seen throughout the brain parenchyma and there is no acute intra or extra-axia l hemorrhage. The posterior fossa including the brainstem, fourth ventricle and cerebellar pontine angles appear no rmal. Intraorbital contents appear normal and symmetric. Visualized paranasal sinuses and mastoid air cells are well aerated. The calvarium is intact. IMPRESSION: No significant abnormality seen. There is no acute bleed or mass effect.
[2024-03-26 14:17] LABS: Basophils # (A) 0.1 k/uL (0-0.2); Basophils % (A) 1 %; Eosinophils # (A) 0.5 k/uL (0-0.7); Eosinophils % (A) 5 %; HCT 45.3 % (39.0-53.0); HGB 15.3 gm/dL (13.0-17.5); Lymphocytes # (A) 1.9 k/uL (1.0-4.8); Lymphocytes % (A) 21 %; MCH 31.1 pg (25.0-35.0); MCHC 33.8 g/dL (31.0-37.0); MCV 91.9 fL (80.0-100.0); Mean Platelet Volume 7.9; Monocytes # (A) 0.6 k/uL (0-1.0); Monocytes % (A) 7 %; Neutrophils # (A) 6.1 k/uL (1.3-7.7); Neutrophils % (A) 65 %; Platelet Count 260 k/uL (150-450); RBC 4.94 m/uL (4.30-5.90); WBC 9.3 k/uL (3.8-10.6)
[2024-03-26] MEDS: SODIUM CHLORIDE 0.9% 1,000 ML IV STA (14:20)
[2024-03-26 14:28] LABS: ALT 18 U/L (4-49); AST 18 U/L (17-59); African American GFR (CKD) >90 (>60 ml/min/1.73 sqM); Alkaline Phosphatase 77 U/L (38-126); Anion Gap 7 mmol/L; Blood Urea Nitrogen 14 mg/dL (9-20); Calcium 9.2 mg/dL (8.4-10.2); Carbon Dioxide 24 mmol/L (22-30); Chloride 106 mmol/L (98-107); Glucose 289 mg/dL (74-99); Magnesium 1.9 mg/dL (1.6-2.3); Non-African American GFR(CKD) >90 (>60 ml/min/1.73 sqM); Potassium 4.2 mmol/L (3.5-5.1); Sodium 137 mmol/L (137-145); Total Bilirubin 0.6 mg/dL (0.2-1.3); Total Protein 6.5 g/dL (6.3-8.2)
[2024-03-26 14:35] LABS: INR 0.9 (<1.2); Partial Thromboplastin Time 22.8 sec (22.0-30.0); Prothrombin Time 10.5 sec (10.0-12.5)
[2024-03-26 16:29] VITALS: BP 157/98; PULSE 84
== END 2024-03-26 16:00 | disposition home or self-care (01) ==
LOC: EC 12:20
DX: R55 Syncope and collapse (principal); Z88.0 Allergy status to penicillin; Z88.1 Allergy status to other antibiotic agents; Z88.2 Allergy status to sulfonamides; Z88.7 Allergy status to serum and vaccine; Z91.030 Bee allergy status
CPT/HCPCS: 36415; 70450; 71046; 80053; 83735; 84484; 85025; 85610; 85730; 93005; 96360; 96361; 99285

== ENCOUNTER → 2024-04-03 | Outpatient (CLI) | payer MEDICARE ==
--- NOTE | 2024-04-03 10:33 | XR ---
EXAMINATION TYPE: XR knee complete RT DATE OF EXAM: 04/03/2024 CLINICAL HISTORY: pain TECHNIQUE: Three views of the right knee are obtained. COMPARISON: None. FINDINGS: There is no acute fracture/dislocation. The tri-compartment joint spaces appear mildly to moderately narrowed. The overlying soft tissue appears unremarkable. IMPRESSION: There is no acute fracture or dislocation.ICD 10 NO FRACTURE, INITIAL EVALUATION
--- NOTE | 2024-04-03 10:34 | XR ---
EXAMINATION TYPE: XR Hip RT and AP Pelvis DATE OF EXAM: 04/03/2024 CLINICAL HISTORY: pain TECHNIQUE: AP and frogleg views of the right hip are obtained. Single view pelvis also submitted. COMPARISON: None. FINDINGS: There is no acute fracture/dislocation evident. The joint space appears moderately narro wed. The overlying soft tissue appears unremarkable. IMPRESSION: 1. There is no acute fracture or dislocation. ICD 10 NO FRACTURE, INITIAL EVALUATION
--- NOTE | 2024-04-03 10:43 | XR ---
EXAMINATION TYPE: XR ribs LT w pa chest xray DATE OF EXAM: 04/03/2024 COMPARISON: HISTORY: Pain TECHNIQUE: Single view of the chest 4 views of the ribs are submitted. FINDINGS: The lungs are clear. No Evidence for pneumothorax. No evidence for focal contusion. Medi astinal structures are midline. Evaluation of the ribs fails to demonstrate evidence for displaced r ib fracture or secondary sign of rib fracture. IMPRESSION: Negative study
== END | disposition home or self-care (01) ==
LOC: RADXRMAIN 09:37
PROVIDERS: ATTEND Family Medicine
DX: M25.561 Pain in right knee (principal); R07.81 Pleurodynia; M25.551 Pain in right hip
CPT/HCPCS: 73502

== ENCOUNTER → 2024-04-06 | Outpatient (CLI) | payer MEDICARE ==
--- NOTE | 2024-04-07 09:28 | US ---
EXAMINATION TYPE: US venous doppler duplex LE RT DATE OF EXAM: 04/06/2024 1:34 PM COMPARISON: NONE CLINICAL INDICATION: Male, 58 years old with history of R29.898 OTH SYMPTOMS AND SIGNS INVOLVING THE MUSCU; Right leg pain and weakness SIDE PERFORMED: Right TECHNIQUE: The lower extremity deep venous system is examined utilizing real time linear array sonog iglesia with graded compression, doppler sonography and color-flow sonography. VESSELS IMAGED: Common Femoral Vein Deep Femoral Vein Greater Saphenous Vein * Femoral Vein Popliteal Vein Small Saphenous Vein * Proximal Calf Veins (* superficial vessels) The deep venous system of the right lower extremity from the common femoral vein to the proximal calf veins is patent and compressible with augmentable flow with normal waveforms. IMPRESSION: No evidence of right lower extremity DVT from the common femoral vein to the proximal calf veins
== END | disposition home or self-care (01) ==
LOC: RADUSWWP 13:11
PROVIDERS: ATTEND Family Medicine
DX: R29.898 Other symptoms and signs involving the musculoskeletal system (principal)

== ENCOUNTER → 2024-04-09 | Outpatient (CLI) | payer MEDICARE ==
--- NOTE | 2024-04-09 13:23 | MR ---
EXAMINATION TYPE: MR thoracic spine wo con MR lumbar spine without contrast. DATE OF EXAM: 04/09/2024 12:45 PM CLINICAL INDICATION:Male, 58 years old with history of R29.898 OTH SYMPTOMS AND SIGNS INVOLVING THE M USCU; PHH, Bilat leg weakness, Frequent falls, Pain low back into right side into calf region x2 week s, Hx Low back surgery COMPARISON: No priors. TECHNIQUE: Multi planar, multi sequence imaging was performed utilizing: T1-weighted, short-tau inver eri recovery and T2-weighted of the thoracic and lumbar spine. IV Contrast: cc (none if empty) FINDINGS: Alignment: Alignment is within normal limits involving the thoracic and lumbar spine. Vertebral emily s have preserved heights. Spinal cord: Spinal cord is within normal limits for signal. Multilevel disc desiccation. No evidence of significant spinal canal or stenosis throughout the thora cic or lumbar spine. There is no evidence of extradural defects or central spinal canal narrowing at any thoracic vertebral body level. Bony edema on inversion recovery sequences at the adjoining T7-T8 endplates with gas bulge with at least mild spinal canal stenosis. T9-T10 and osteophytes with mild s jesus canal stenosis and T10-T11 osteophyte with mild spinal canal stenosis. Multilevel osteophyte fo rmation and facet joint arthropathy. Scattered disc space narrowing. There is scattered mild neural f oraminal stenosis throughout the spine. The lumbar spine evaluation was terminated by the patient. If you've the sequences demonstrate satisf actory alignment of the lumbar spine. There is mild degeneration changes with osteophyte formation wi th facet joint arthropathy. Motion severely limits exam. No evidence for significant spinal canal rivera nosis. There is at least moderate L4-L5 and L5-S1 neural foraminal stenosis bilaterally. The remainde r of the neural foramen are patent. IMPRESSION: Limited evaluation due to motion. 1. Moderate multilevel degeneration changes with scattered at least mild spinal canal stenosis at mu ltiple levels. No evidence for significant neural foraminal stenosis in the thoracic spine. Degenerat ion changes worse at T7-T8 with reactive bony edema. 2. The lumbar spine evaluation was terminated early. Limited sequences demonstrate moderate L4-L5 an d L5-S1 neural foraminal stenosis bilaterally. 3. No evidence for significant spinal canal stenosis in the lumbar spine.
== END | disposition home or self-care (01) ==
LOC: RADMRIMAIN 11:22
PROVIDERS: ATTEND Family Medicine
DX: M47.814 Spondylosis without myelopathy or radiculopathy, thoracic region (principal); M48.04 Spinal stenosis, thoracic region; M99.73 Connective tissue and disc stenosis of intervertebral foramina of lumbar region; R53.1 Weakness; R29.898 Other symptoms and signs involving the musculoskeletal system; R29.6 Repeated falls; Z98.890 Other specified postprocedural states
CPT/HCPCS: 72146

== ENCOUNTER → 2024-04-22 | Outpatient (CLI) | payer MEDICARE ==
--- NOTE | 2024-04-22 13:42 | MR ---
EXAMINATION TYPE: MR lumbar spine wo con DATE OF EXAM: 04/22/2024 COMPARISON: 11/19/2021 HISTORY: Low back pain into right leg/lower extremity, Hx back surgery TECHNIQUE: Multiplanar, multisequence images of the lumbar spine were acquired without IV contrast. Findings: The lumbar vertebral segments are normal in height and alignment is no fracture or subluxation. There is mild disc space narrowing, circumferential disc bulge and loss of signal intensity of the L2 -3, L3-4 and L4-5 discs. There is no focal disc protrusion or herniation. Conus medullaris cauda equina appear normal. Laminectomy defect at the L4-5 and L5-S1 levels. There is no spinal stenosis. There is moderate to severe narrowing of the elbow for 5 and L5-S1 neural foramina on the right and m oderate narrowing of the L4-5 neural foramina on the left. IMPRESSION: 1. Laminectomy defect at the L4-5 and L5-S1 levels. 2. Mild degenerative disc disease from L2 through L5. 3. No MR disc herniation. 4. No spinal stenosis. 5. Bilateral neural foraminal stenosis as described above.
== END | disposition home or self-care (01) ==
LOC: RADMRIMAIN 12:58
PROVIDERS: ATTEND Family Medicine
DX: M51.36 Other intervertebral disc degeneration, lumbar region (principal); M99.73 Connective tissue and disc stenosis of intervertebral foramina of lumbar region; R29.898 Other symptoms and signs involving the musculoskeletal system
CPT/HCPCS: 72148

== ENCOUNTER 2024-08-27 18:29 | Emergency (ER) | payer MEDICARE ==
[2024-08-27 18:42] VITALS: BP 138/74; PULSE 106
[2024-08-27] MEDS ORDERED: TOPICAL SKIN ADHESIVE 1 EACH AMP TOPICAL ONE (19:27)
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
[2024-08-27 20:20] VITALS: RESP 16
== END 2024-08-27 20:20 | disposition home or self-care (01) ==
LOC: EC 18:29
CPT/HCPCS: 99282

== ENCOUNTER → 2024-09-20 | Outpatient (CLI) | payer MEDICARE ==
[2024-09-20 06:56] LABS: African American GFR (CKD) >90 (>60 ml/min/1.73 sqM); Blood Urea Nitrogen 19 mg/dL (9-20); Non-African American GFR(CKD) >90 (>60 ml/min/1.73 sqM)
--- NOTE | 2024-09-20 08:56 | CT ---
EXAMINATION TYPE: CT ChestAbdPelvis wo/w con DATE OF EXAM: 09/20/2024 8:31 AM COMPARISON: None. CLINICAL INDICATION: Male, 59 years old with history of R63.4 ABN WEIGHT LOSS; PHH, ABNORMAL WEIGHT L OSS Technique: CT ChestAbdPelvis wo/w con; Multiple axial images were obtained. Two-dimensional coronal a nd sagittal reconstructions were obtained. Contrast used:100 mL of Isovue 370 with IV Contrast, (None if empty) Oral contrast used: with Oral Contrast CT DLP: 2857 mGycm, Automated exposure control for dose reduction was used. Findings: CHEST: LUNGS/ PLEURA: No focal consolidation, pneumothorax or pleural effusion. AIRWAY: Patent and unremarkable. HEART: Size within normal limits. MEDIASTINUM: No gross evidence of adenopathy. VASCULATURE: No aortic aneurysm. MUSCULOSKELETAL: No acute osseous abnormalities. Fixation changes in the cervical spine appear intact . SOFT TISSUES/LYMPH NODES: Mild bilateral gynecomastia changes. No lymphadenopathy. LOWER NECK: No significant findings. ABDOMEN: ABDOMEN LIVER: Unremarkable GALLBLADDER AND BILE DUCTS: Unremarkable. PANCREAS: Unremarkable. SPLEEN: Unremarkable. ADRENAL GLANDS: Unremarkable. KIDNEYS AND URETERS: No evidence of hydronephrosis or renal calculus. The ureters are unremarkable. PELVIS BLADDER: Unremarkable REPRODUCTIVE: Prostate is enlarged in size measuring 4.6 cm in transverse dimension. ABDOMEN & PELVIS STOMACH AND BOWEL: No evidence of bowel obstruction. Scattered colonic diverticula.r moderate amount stool throughout the colon. Normal. PERITONEUM/RETROPERITONEUM: No evidence of pneumoperitoneum or free fluid. VASCULATURE: No evidence of aortic aneurysm. MUSCULOSKELETAL: No acute osseous abnormalities, post surgical changes to the spine with laminectomy changes. Multilevel degeneration changes throughout the spine with osteophyte formation disc space na rrowing present. The hips demonstrate large osteophytes with joint space narrowing. LYMPH NODES: No gross evidence for lymphadenopathy. SOFT TISSUE/ABDOMINAL WALL: Unremarkable IMPRESSION: 1. No evidence for lymphadenopathy or mass. 2. Prostatomegaly, correlate with serum PSA. 3. Colonic diverticulosis. 4. Moderate amount stool throughout the colon. 5. Postsurgical changes spine with hardware intact. [facility], , 09/20/2024 8:54 AM
== END | disposition home or self-care (01) ==
LOC: RADCTMAIN 06:13
PROVIDERS: ATTEND Family Medicine
CPT/HCPCS: 36415; 71270; 74178; 82565; 84520

== ENCOUNTER 2025-05-30 21:21 | Observation (INO) | payer MEDICARE ==
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
[2025-05-30] MEDS: ASPIRIN 81 MG PO STA (22:06)
[2025-05-30 22:27] LABS: Basophils # (A) 0.06 10*3/uL (0.00-0.10); Basophils % (A) 0.7 %; Eosinophils # (A) 0.44 10*3/uL (0.04-0.35); Eosinophils % (A) 5.0 %; HCT 40.0 % (39.6-50.0); HGB 14.1 g/dL (13.0-17.0); Lymphocytes # (A) 2.26 10*3/uL (0.90-5.00); Lymphocytes % (A) 25.6 %; MCH 30.7 pg (27.0-32.0); MCHC 35.3 g/dL (32.0-37.0); MCV 87.1 fL (80.0-97.0); Monocytes # (A) 0.70 10*3/uL (0.20-1.00); Monocytes % (A) 7.9 %; Neutrophils # (A) 5.35 10*3/uL (1.80-7.70); Neutrophils % (A) 60.5 %; Platelet Count 266 10*3/uL (140-440); RBC 4.59 10*6/uL (4.40-5.60); RDW 12.4 % (11.5-14.5); WBC 8.84 10*3/uL (4.50-10.00)
[2025-05-30 22:38] LABS: INR 0.9 (<1.2); Prothrombin Time 10.4 sec (10.0-12.5)
[2025-05-30 22:39] LABS: Partial Thromboplastin Time 22.9 sec (22.0-30.0)
--- NOTE | 2025-05-30 22:42 | XR ---
EXAM: XR Chest, 2 Views CLINICAL HISTORY: ITS.REASON XR Reason: Chest Pain TECHNIQUE: Frontal and lateral views of the chest. COMPARISON: No relevant prior studies available. FINDINGS: Lungs: Unremarkable. No consolidation. Pleural space: Unremarkable. No pneumothorax. Heart: Unremarkable. No cardiomegaly. Mediastinum: Unremarkable. Bones/joints: Unremarkable. Other findings: ACDF. IMPRESSION: No acute findings in the chest.
[2025-05-30 22:47] LABS: ALT 17 U/L (4-49); AST 19 U/L (17-59); African American GFR (CKD) >90 (>60 ml/min/1.73 sqM); Albumin 4.4 g/dL (3.5-5.0); Alkaline Phosphatase 125 U/L (38-126); Anion Gap 12 mmol/L; Blood Urea Nitrogen 21 mg/dL (9-20); Calcium 9.6 mg/dL (8.4-10.2); Carbon Dioxide 28 mmol/L (22-30); Chloride 100 mmol/L (98-107); Glucose 259 mg/dL (74-99); Lipase 76 U/L (23-300); Magnesium 2.0 mg/dL (1.6-2.3); Non-African American GFR(CKD) >90 (>60 ml/min/1.73 sqM); Potassium 4.2 mmol/L (3.5-5.1); Sodium 140 mmol/L (137-145); Total Protein 6.9 g/dL (6.3-8.2)
[2025-05-30] MEDS ORDERED: NALOXONE 0.4 MG/ML 1 ML VIAL IV PRN (23:19)
[2025-05-30] MEDS ORDERED: ACETAMINOPHEN TAB 325 MG TAB PO PRN (23:19)
[2025-05-31 01:21] LABS: Glucose,Whole Blood 140 mg/dL (70-110)
[2025-05-31 01:55] VITALS: RESP 18
[2025-05-31 04:12] LABS: Basophils # (A) 0.07 10*3/uL (0.00-0.10); Basophils % (A) 0.7 %; Eosinophils # (A) 0.48 10*3/uL (0.04-0.35); Eosinophils % (A) 4.8 %; HCT 39.1 % (39.6-50.0); HGB 13.5 g/dL (13.0-17.0); Lymphocytes # (A) 2.77 10*3/uL (0.90-5.00); Lymphocytes % (A) 27.7 %; MCH 30.3 pg (27.0-32.0); MCHC 34.5 g/dL (32.0-37.0); MCV 87.7 fL (80.0-97.0); Monocytes # (A) 0.80 10*3/uL (0.20-1.00); Monocytes % (A) 8.0 %; Neutrophils # (A) 5.86 10*3/uL (1.80-7.70); Neutrophils % (A) 58.6 %; Platelet Count 258 10*3/uL (140-440); RBC 4.46 10*6/uL (4.40-5.60); RDW 12.4 % (11.5-14.5); WBC 10.00 10*3/uL (4.50-10.00)
[2025-05-31 04:33] LABS: ALT 15 U/L (4-49); AST 19 U/L (17-59); African American GFR (CKD) >90 (>60 ml/min/1.73 sqM); Albumin 3.9 g/dL (3.5-5.0); Alkaline Phosphatase 101 U/L (38-126); Anion Gap 12 mmol/L; Blood Urea Nitrogen 20 mg/dL (9-20); Calcium 9.3 mg/dL (8.4-10.2); Carbon Dioxide 26 mmol/L (22-30); Chloride 102 mmol/L (98-107); Glucose 94 mg/dL (74-99); Non-African American GFR(CKD) >90 (>60 ml/min/1.73 sqM); Potassium 3.7 mmol/L (3.5-5.1); Sodium 140 mmol/L (137-145); Total Protein 6.3 g/dL (6.3-8.2)
[2025-05-31 08:04] VITALS: TEMP 97.7
[2025-05-31] MEDS: KETOROLAC 15 MG/ML 1 ML VIAL IVP PRN (08:14)
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
[2025-05-31] MEDS: SENNOSIDES 8.6 MG TAB PO STA (11:56)
[2025-05-31 12:09] VITALS: BP 154/84; PULSE 84
[2025-05-31] MEDS ORDERED: ATORVASTATIN 20 MG TAB PO SCH (21:00)
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
== END 2025-05-31 14:03 ==
LOC: EC 21:21 → 6NMEDSUR 23:13 → 1SOBS 23:57 → 6NMEDSUR 05-31 05:09
PROVIDERS: ADMIT Internal Medicine; ATTEND Internal Medicine
DX: R07.9 Chest pain, unspecified (principal); J44.89 Other specified chronic obstructive pulmonary disease; I25.2 Old myocardial infarction; I25.10 Atherosclerotic heart disease of native coronary artery without angina pectoris; E11.9 Type 2 diabetes mellitus without complications; G43.909 Migraine, unspecified, not intractable, without status migrainosus; E78.5 Hyperlipidemia, unspecified; F32.A Depression, unspecified; F41.9 Anxiety disorder, unspecified; F43.10 Post-traumatic stress disorder, unspecified; G89.21 Chronic pain due to trauma; I10 Essential (primary) hypertension; K59.00 Constipation, unspecified; I65.21 Occlusion and stenosis of right carotid artery; G47.30 Sleep apnea, unspecified; Z79.4 Long term (current) use of insulin; Z79.899 Other long term (current) drug therapy; Z88.2 Allergy status to sulfonamides; Z88.1 Allergy status to other antibiotic agents; Z88.7 Allergy status to serum and vaccine; Z88.0 Allergy status to penicillin
CPT/HCPCS: 96374; 99285; 36415; 93005; 80053 ×2; 83690; 83735; 84484 ×2; 85025 ×2; 85610; 85730; 71046; G0378 ×2; J1885

== ENCOUNTER 2025-06-15 05:17 | Emergency (ER) | payer MEDICARE ==
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
--- NOTE | 2025-06-15 07:30 | CT ---
EXAMINATION TYPE: CT brain cspine wo con DATE OF EXAM: 06/15/2025 6:12 AM COMPARISON: 03/26/[address] CLINICAL INDICATION: Male, 59 years old with history of fall, pain Technique: Examination of the head was done in axial plane without intravenous contrast. Coronal and sagittal reconstructions performed. CT of the cervical spine was obtained in axial plane without intravenous injection of contrast mater ial. Coronal and sagittal reformatted images were obtained from the axial views for evaluation of f ractures, spinal alignment and canal. CT DLP: 1483.1 mGycm, Automated exposure control for dose reduction was used. FINDINGS: Head: There is no evidence of acute intracranial hemorrhage, acute ischemic changes, mass, mass-effect, or extra-axial fluid collection. There is no effacement of cerebral sulci or basal subarachnoid cister ns. There is no hydrocephalus. There is no midline shift. Geller-white matter distinction is preserv ed. Mild patchy white matter hypodensities in both cerebral hemispheres redemonstrated. Slight leftward nasal septal deviation. Paranasal sinuses and mastoid air cells are well pneumatized. Orbits and globes are intact. Cervical spine: Asymmetric partial effacement right vallecular space, axial image 49 and 50. Also, there seems to be some thickening along the aryepiglottic folds, axial image 60. Direct visualization to assess both of these findings. Patient status post C3-C7 ACDF. Overall alignment is maintained. Prominent partially bridging anterior endplate spondylosis along the nonfused levels. 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 Assessment of the spinal canal is limited due to artifact from the thoracic inlet and patient's shoulders. No acute fracture is seen. Bony hyperostotic changes contribute to variable moderate neuroforaminal s tenoses throughout. Sagittal and coronal reformatted images confirm above findings. COMBINED IMPRESSION: 1. No acute intracranial abnormality seen. 2. No acute fracture or malalignment in the cervical spine. Patient status post C3-C7 ACDF with a und erlying spondylotic change as above. 3. Recommend ENT referral for direct visualization and assessment of soft tissue partially effacing t he right vallecular space and possibly thickening the aryepiglottic folds. Mucosal lesions should be excluded. [facility], Workstation: [facility] 06/15/2025 7:28 AM
--- NOTE | 2025-06-15 07:39 | XR ---
EXAMINATION TYPE: XR Hip 2 views RT and AP Pelvis DATE OF EXAM: 06/15/2025 6:14 AM COMPARISON: 04/03/2024 CLINICAL INDICATION: Male, 59 years old with history of fall; PHH, pain FINDINGS: [id number] degenerative spurring at both hips. As compared to 04/03/2024, there has been placeme nt of posterior lumbar pelvic fusion hardware. No acute fracture, subluxation, or dislocation is seen . 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 Posterior lumbar-pelvic fusion hardware with mckay inectomies. No acute osseous abnormality seen. [facility], , 06/15/2025 7:37 AM
[2025-06-15 08:31] VITALS: BP 189/80; PULSE 86; RESP 18; TEMP 98
== END 2025-06-15 08:39 | disposition home or self-care (01) ==
LOC: EC 05:17
DX: M25.551 Pain in right hip (principal); Z88.0 Allergy status to penicillin; Z88.1 Allergy status to other antibiotic agents; Z88.2 Allergy status to sulfonamides; Z88.7 Allergy status to serum and vaccine; Z91.030 Bee allergy status; Z91.018 Allergy to other foods; W06.XXXA Fall from bed, initial encounter
CPT/HCPCS: 70450; 72125; 73502; 93005; 99284